=== PATIENT | female | born 1980 | race Caucasian/White ===

== ENCOUNTER 2016-08-08 19:22 | Emergency (ER) | payer OTHER ==
[~2016-08-08] VITALS: Ht 162.6 cm; Wt 54.4 kg
[2016-08-08 19:27] VITALS: BP 121/68
== END 2016-08-09 01:14 | disposition left against medical advice (07) ==
LOC: ER 19:31
DX: S61.012A Laceration without foreign body of left thumb without damage to nail, initial encounter (principal); Z53.21 Procedure and treatment not carried out due to patient leaving prior to being seen by health care provider; W26.9XXA Contact with unspecified sharp object(s), initial encounter; Y93.89 Activity, other specified; Y99.8 Other external cause status; Y92.89 Other specified places as the place of occurrence of the external cause

== ENCOUNTER 2024-05-04 21:39 | Inpatient (IN) | payer MEDICAID, OTHER ==
[~2024-05-04] VITALS: Ht 162.6 cm; Wt 56.7 kg
--- NOTE | 2024-05-04 21:47 | ED.PDOC ---
History of Present Illness HPI Comments 44 year old female brought in by EMS presents to the ED with a chief complaint of generalized weakness onset 3 weeks. Patient states she has been experiencing generalized weakness for the past 3 weeks, noticed it worsen today, was also experiencing shortness of breath. Per EMS, patient has a PMHx of anemia, is currently taking iron supplements, looks pale. EMS tried to obtain blood glucose, were unable to due to blood being very "watery." Patient denies any chest pain, headache, nausea, vomiting, diarrhea. No other symptoms or modifying factors present at this time. Time Seen by MD: 21:39 Reviewed Notes: Medications, Allergies Allergies: Coded Allergies: NO KNOWN ALLERGIES (Unverified , 05/04/24) Information Source: Patient, Emergency Med Personnel Severity: Moderate Timing: Weeks Duration: Since onset Prehospital treatment: None Past Medical History PAST MEDICAL HISTORY: Anemia Surgical History: Denies all surgeries WAITSTAFF History: No Pertinent WAITSTAFF History Family History Family History: Reviewed,noncontributory to illness, No family hx of Cancer, No family hx of DM, No family hx of Heart marli, No family hx of HTN, No family hx ofKidney marli, No family hx of Liver marli, No family hx of Lung marli, No family hx of Stroke Social History Smoker: Non-Smoker Alcohol: Denies ETOH Use Drugs: Denies Drug Use Lives In: Home Constitutional: reports: weakness; denies: chills, diaphoresis, fatigue, fever, malaise, sweats, others EENTM: denies: blurred vision, double vision, ear bleeding, ear discharge, ear drainage, ear pain, ear ringing, eye pain, eye redness, hearing loss, mouth pain, mouth swelling, nasal discharge, nose bleeding, nose congestion, nose pain, photophobia, tearing, throat pain, throat swelling, voice changes, others Respiratory: denies: cough, hemoptysis, orthopnea, SOB at rest, shortness of breath, SOB with excertion, stridor, wheezing, others Cardiovascular: denies: chest pain, dizzy spells, diaphoresis, Dyspnea on exertion, edema, irregular heart beat, left arm pain, lightheadedness, palpitations, PND, syncope, others Gastrointestinal: denies: abdomen distended, abdominal pain, blood streaked bowels, constipated, diarrhea, dysphagia, difficulty swallowing, hematemesis, melena, nausea, poor appetite, poor fluid intake, rectal bleeding, rectal pain, vomiting, others Genitourinary: denies: abnormal vagina bleeding, burning, dyspareunia, dysuria, flank pain, frequency, hematuria, incontinence, pain, , vagina discharge, urgency, others Neurological: reports: weakness; denies: dizziness, fainting, headache, left sided numbness, left sided weakness, numbness, paresthesia, pre-existing deficit, right sided numbness, right sided weakness, seizure, speech problems, tingling, tremors, others Musculoskeletal: denies: back pain, gout, joint pain, joint swelling, muscle pain, muscle stiffness, neck pain, others Integumetry: reports: change in color (pale); denies: bruises, change in hair/nails, dryness, laceration, lesions, lumps, rash, wounds, others Allergic/Immunocompromised: denies: Difficulty Healing, Frequent Infections, Hives, Itching, others Hematologic/Lymphatic: denies: anemia, blood clots, easy bleeding, easy bruising, swollen glands, others Endocrine: denies: excessive hunger, excessive sweating, excessive thirst, excessive urination, flushing, intolerance to cold, intolerance to heat, unexplained weight gain, unexplained weight loss, others Psychiatric: denies: anxiety, bipolar disorder, depression, hopeless, panic disorder, schizophrenia, sleepless, suicidal, others All Other Systems: Reviewed and Negative Physical Exam General Appearance: No Apparent Distress, Normal HEENT: Normal ENT Inspection, Pharynx Normal, TMs Normal Neck: Full Range of Motion, Non-Tender, Normal, Normal Inspection Respiratory: Chest Non-Tender, Lungs Clear, No Accessory Muscle Use, No Respiratory Distress, Normal Breath Sounds Cardiovascular: No Edema, No JVD, No Murmur, No Gallop, Normal Peripheral Pulses, Regular Rate/Rhythm Breast Exam: Deferred Gastrointestinal: No Organomegaly, Non Tender, No Pulsatile Mass, Normal Bowel Sounds, Soft Genitalia: Deferred Pelvic: Deferred Rectal: Deferred Extremities: No calf tenderness, Normal capillary refill, Normal inspection, Normal range of motion, Non-tender, No pedal edema Musculoskeletal : Apperance: Normal Neurologic: Alert, hydroelectric machinery mechanic II-XII nml as Tested, No Motor Deficits, Normal Affect, Normal Mood, No Sensory Deficits Cerebellar Function: Normal Reflexes: Normal Skin: Dry, Normal Color, Warm Lymphatic: No Adenopathy Was a procedure done? Was a procedure done?: No Differential Dx Considerations may include: Differential diagnosis includes but is not limited to: miscarriage, dysfunctional uterine bleeding, uterine fibroids, coagulopathy, symptomatic anemia, hypovolemia and others X-Ray, Labs, Meds, VS Vital Signs Date Time Temp Pulse Resp B/P (MAP) Pulse Ox O2 Delivery O2 Flow Rate FiO2 05/04/24 23:40 99.1 109 17 98/51 99.1 05/04/24 21:45 98.8 107 16 111/57 (75) 100 Lab Test 05/04/24 21:57 Range/Units White Blood Count 7.3 4.4-10.8 10^3/uL Red Blood Count 0.98 L 4.0-5.20 10^6/uL Hemoglobin 1.8 *L 12.2-16.2 g/dL Hematocrit 6.4 L 36.0-46.0 % Mean Corpuscular Volume 65.3 L 80.0-100.0 fL Mean Corpuscular Hemoglobin 18.8 L 28.0-32.0 pg Mean Corpuscular Hemoglobin Concent 28.8 L 32.0-36.0 g/dL Red Cell Distribution Width 34.5 H 11.8-14.3 % Platelet Count 32 L 140-450 10^3/uL Mean Platelet Volume 8.1 6.9-10.8 fL Neutrophils (%) (Auto) 74.4 37.0-80.0 % Lymphocytes (%) (Auto) 18.1 10.0-50.0 % Monocytes (%) (Auto) 4.9 0.0-12.0 % Eosinophils (%) (Auto) 0.7 0.0-7.0 % Basophils (%) (Auto) 1.9 0.0-2.0 % Neutrophils # (Auto) 5.4 1.6-8.6 10 ^3/uL Lymphocytes # (Auto) 1.3 0.4-5.4 10 ^3/uL Monocytes # (Auto) 0.4 0-1.3 10 ^3/uL Eosinophils # (Auto) 0.1 0-0.8 10 ^3/uL Basophils # (Auto) 0.1 0-0.2 10 ^3/uL Nucleated Red Blood Cells 0.1 % Platelet Estimate Decreased Hypochromasia (manual) Marked Poikilocytosis (manual) Slight Anisocytosis (manual) Marked Microcytosis Marked Tear Drop Cells Few Schistocytes Few Reticulocyte Count (auto) 0.99 0.5-1.5 % Prothrombin Time 11.2 9.3-11.8 sec Prothrombin Time INR 1.06 0.9-1.15 Activated Partial Thromboplast Time 20.7 L 24.5-34.5 SEC Sodium Level 137 136-145 mmol/L Potassium Level 4.2 3.5-5.1 mmol/L Chloride Level 106 98-107 mmol/L Carbon Dioxide Level 20 20-31 mmol/L Anion Gap 11 5-15 Blood Urea Nitrogen 8 L 9-23 mg/dL Creatinine 0.62 0.550-1.02 mg/dL Glomerular Filtration Rate Calc 113 >90 mL/min BUN/Creatinine Ratio 12.9 10.0-20.0 Serum Glucose 109 H 74-106 mg/dL Calcium Level 8.4 L 8.7-10.4 mg/dL Iron Level 128 50-170 ug/dL Total Iron Binding Capacity 416 250-425 ug/dL Percent Iron Saturation 30.8 15-50 % Total Bilirubin 0.6 0.2-1.0 mg/dL Aspartate Amino Transferase (AST) 34 13-40 U/L Alanine Aminotransferase (ALT) 33 7-40 U/L Alkaline Phosphatase 111 46-116 U/L Total Protein 5.7 5.7-8.2 g/dL Albumin 3.6 3.2-4.8 g/dL Current Medications Medications (Trade) Dose Ordered Sig/Donavon Route Start Time Stop Time Status Last Admin Sodium Chloride 500 ml @ 500 mls/hr Q1H ONCE IV 05/04/24 22:30 05/04/24 23:29 DC 05/04/24 23:[address] [address] Ph: [phone] DIAGNOSTIC IMAGING Diagnostic Imaging Report : [id number] Signed PATIENT: NENA KAY ACCT: [id number] UNIT: [id number] : 1980 LOC: ER ROOM / BED: / AGE / SEX: 44 / F ADM STATUS: REG ER SERVICE 44 ORDERING PHYSICIAN: GABRIELA HERRERA MD PROCEDURE(s): CXRP - CHEST PORTABLE REASON: SOB ORDER NUMBER(s): [id number], ACCESSION NUMBER(s): [id number] CHEST RADIOGRAPH Indication: SOB Technique: Single frontal view of the chest was obtained COMPARISON: None FINDINGS: Lines and Tubes: None Lungs: Clear Pleura: No effusion. No pneumothorax. Cardiomediastinal contours: Unremarkable Bones: Unremarkable IMPRESSION: 1. No acute disease. ATED BY: HARMONY VILLALTA MD DICTATED DATE/TIME: 05/04/242223 SIGNED BY: HARMONY VILLALTA MD SIGNED DATE/TIME: 05/04/242223 CC: Time of 1ST Reevaluation: 22:09 Reevaluation 1ST: Unchanged Time of 2ND Reevaluation: 00:13 Reevaluation 2ND: Unchanged Patient Education/Counseling: Diagnosis, Treatment, Prognosis Family Education/Counseling: No Family Present Additional Information The following tests were ordered, and results were reviewed by me: CBC, CMP, UA, PTPTT, TYPE AND SCREEN, XY CHEST, EKG Additional Information was gathered from interviewing the following independent historians: EMS I reviewed and agreed with the following test results read by other providers: XY CHEST I discussed treatment and results with medical personnel and: patient Departure 1 Departure Time of Disposition: 00:13 Impression: Primary Impression: Microcytic anemia Additional Impressions: Symptomatic anemia Thrombocytopenia Disposition: ADMITTED INPATIENT Admit to: Med Surg Condition: Guarded Discharged With: Self Comments Severe Anemia with Menorrhagia Chief Complaint: Severe weakness and heavy menstrual periods History of Present Illness: 44-year-old female presents to the ED with complaints of severe generalized weakness for the past two days. Patient reports a history of heavy menstrual periods. She appears notably pale on examination. Laboratory studies reveal severe microcytic anemia with critically low hemoglobin and platelet counts, requiring urgent intervention. Review of Systems: Constitutional: Positive for generalized weakness Hematologic: Heavy menstrual bleeding All other systems reviewed and negative Physical Exam: General: Patient appears pale Lab Results: CBC: - Hemoglobin: 1.8 g/dL (Critical) - Hematocrit: 6.4% (Critical) - MCV: 65.3 fL (Low) - WBC: 7.0 K/uL (Normal) - Platelets: 32 K/uL (Critical) Chemistry Panel: Within normal limits Imaging and Other Relevant Results: Chest X-ray: No acute pathology Medical Decision Making: Summary Statement: 44-year-old female presenting with severe symptomatic anemia (Hgb 1.8) and thrombocytopenia in the setting of menorrhagia, requiring urgent blood transfusion and admission. Problem List: 1. Severe microcytic anemia 2. Thrombocytopenia 3. Menorrhagia Differential Diagnosis: 1. Iron deficiency anemia due to chronic blood loss 2. Combined nutritional deficiency 3. Possible underlying hematologic disorder 4. Potential gynecologic pathology ED Course: Patient evaluated and found to have critical anemia. Two units of packed red blood cells ordered for immediate transfusion. Shared decision-making discussion held with patient who agrees with treatment plan and admission. Assessment and Plan: 1. Severe Microcytic Anemia (Hgb 1.8, Hct 6.4) - Initiate immediate blood transfusion with 2 units PRBCs - Additional units likely needed - Admit to hospital for continued transfusion and further workup 2. Thrombocytopenia (Plt 32) - Monitor closely - Further evaluation during admission 3. Menorrhagia - Gynecology consultation during admission - Evaluate for underlying cause of heavy menstrual bleeding Billing Information: ICD-10: D50.0 - Iron deficiency anemia secondary to blood loss (chronic) ICD-10: D69.6 - Thrombocytopenia, unspecified ICD-10: N92.0 - Excessive and frequent menstruation with regular cycle Critical Care Note Critical Care Time?: Yes (35 min-critical care time only) Critical care comment: Total critical care time: Approximately 36 minutes Due to a high probability of clinically significant, life threatening deterioration, the patient required my highest level of preparedness to intervene emergently and I personally spent this critical care time directly and personally managing the patient. This critical care time included obtaining a history; examining the patient; pulse oximetry; ordering and review of studies; arranging urgent treatment with development of a management plan; evaluation of patient's response to treatment; frequent reassessment; and, discussions with other providers. This critical care time was performed to assess and manage the high probability of imminent, life-threatening deterioration that could result in multi-organ failure. It was exclusive of separately billable procedures and treating other patients. Stability Stability form required: No Heart Score Heart Score: Heart Score Response (Comments) Value History N/A 0 EKG N/A 0 Age N/A 0 Risk Factors N/A 0 Troponin N/A 0 Total 0 I personally scribed for GABRIELA HERRERA MD ([email or web address]) on 05/04/24 at 21:47. Electronically submitted by Samra Corey ([email or web address]). I personally scribed for GABRIELA HERRERA MD ([email or web address]) on 05/04/24 at 21:48. Electronically submitted by Samra Corey ([email or web address]). I personally scribed for GABRIELA HERRERA MD ([email or web address]) on 05/04/24 at 22:23. Electronically submitted by Samra Corey ([email or web address]). I personally scribed for GABRIELA HERRERA MD ([email or web address]) on 05/04/24 at 23:02. Electronically submitted by Samra Corey ([email or web address]). GABRIELA HERRERA MD May 04, 2024 21:47
[2024-05-04 22:19] LABS: Basophils # (auto) 0.1 10 ^3/uL (0-0.2); Eosinophils # (auto) 0.1 10 ^3/uL (0-0.8); Hematocrit 6.4 % (36.0-46.0); Mean Corpuscular Hgb Conc. 28.8 g/dL (32.0-36.0); Neutrophils # (auto) 5.4 10 ^3/uL (1.6-8.6); Nucleated Red Blood Cells % 0.1 %
[2024-05-04 22:22] LABS: Basophils % (auto) 1.9 % (0.0-2.0); Eosinophils % (auto) 0.7 % (0.0-7.0); Lymphocytes # (auto) 1.3 10 ^3/uL (0.4-5.4); Lymphocytes % (auto) 18.1 % (10.0-50.0); Mean Corpuscular Hemoglobin 18.8 pg (28.0-32.0); Mean Corpuscular Volume 65.3 fL (80.0-100.0); Monocytes # (auto) 0.4 10 ^3/uL (0-1.3); Monocytes % (auto) 4.9 % (0.0-12.0); Neutrophils % (auto) 74.4 % (37.0-80.0); Platelet Count (auto) 32 10^3/uL (140-450); Red Blood Cells 0.98 10^6/uL (4.0-5.20); Red Cell Distribution Width 34.5 % (11.8-14.3); White Blood Cell 7.3 10^3/uL (4.4-10.8)
[2024-05-04 22:25] LABS: Hemoglobin 1.8 g/dL (12.2-16.2)
--- NOTE | 2024-05-04 22:27 | DVH ---
CHEST RADIOGRAPH Indication: SOB Technique: Single frontal view of the chest was obtained COMPARISON: None FINDINGS: Lines and Tubes: None Lungs: Clear Pleura: No effusion. No pneumothorax. Cardiomediastinal contours: Unremarkable Bones: Unremarkable IMPRESSION: 1. No acute disease.
[2024-05-04 22:34] LABS: INR 1.06 (0.9-1.15); Partial Thromboplastin Time 20.7 SEC (24.5-34.5); Prothrombin Time 11.2 sec (9.3-11.8)
[2024-05-04 22:44] LABS: Alanine Aminotransferase 33 U/L (7-40); Albumin 3.6 g/dL (3.2-4.8); Alkaline Phosphatase 111 U/L (46-116); Anion Gap 11 (5-15); Aspartate Aminotransferase 34 U/L (13-40); BUN/Creatinine Ratio 12.9 (10.0-20.0); Bilirubin, Total 0.6 mg/dL (0.2-1.0); Carbon Dioxide 20 mmol/L (20-31); Chloride 106 mmol/L (98-107); Potassium 4.2 mmol/L (3.5-5.1); Sodium 137 mmol/L (136-145); Total Protein 5.7 g/dL (5.7-8.2)
[2024-05-04 22:45] VITALS: PULSE 106; RESP 20; O2SAT 96
[2024-05-04 22:48] LABS: Blood Urea Nitrogen 8 mg/dL (9-23); Calcium 8.4 mg/dL (8.7-10.4); Glucose 109 mg/dL (74-106)
[2024-05-04 22:53] LABS: % Iron Saturation 30.8 % (15-50)
[2024-05-04] MEDS: SODIUM CHLORIDE 0.9% 500 ML IV ONE (23:00)
[2024-05-04 23:40] VITALS: BP 98/51; PULSE 109; RESP 17; TEMP 99.1
[2024-05-05] VITALS (26 sets, daily range): BP systolic 93–126; BP diastolic 44–71; PULSE 62–107; RESP 12–22; TEMP 98–99.2; O2SAT 97–100
[2024-05-05] LABS: Anisocytosis Marked; Hypochromia Marked; Platelet Estimate Decreased; Tear Drop Cells FEW
[2024-05-05] MEDS ORDERED: MORPHINE SULFATE INJ 2 MG/ml SYRG IV PRN (00:45)
[2024-05-05] MEDS ORDERED: NITROGLYCERIN 0.4 MG SL TAB SL PRN (00:45)
[2024-05-05] MEDS: SODIUM CHLORIDE 0.9% 1,000 ML IV SCH (00:58)
--- NOTE | 2024-05-05 01:43 | DVHHPRES ---
History of Present Illness Resident Creating Document: LUCA RODRIGUEZ RESIDENT History of Present Illness NENA KAY is a 44-year-old female with a PMH of fibromyalgia, bulging disc, basal cell carcinoma shoulders presented to the ED with a worsening of weakness. Patient reported for past 3 weeks she has been having severe vaginal bleeding, sometimes required 3 pads in 30 minutes, clots associated with severe fatty, difficulty walking, shortness of breath, syncopal for 3 times, lightheadedness, palpitations, leg swelling which prompted her to visit ED. on my assessment patient denies chest pain, nausea, vomiting, diarrhea, abdominal pain and other acute associated symptoms. PMH: Fibromyalgia, bulge disc, basal cell carcinoma PSH: Tubal ligation, GI bypass, breast implant Family history: Skin cancer in family Social history: Lives with a boyfriend. Denies smoking, alcohol and other drug abuse Allergies: No known allergies Review of Systems Constitutional: Yes: Chills Eyes: No: Pain, Vision change, Conjunctivae inflammation, Eyelid inflammation, Other, Redness ENT: No: Ear pain, Ear discharge, Nose pain, Nose discharge, Nose congestion, Mouth pain, Mouth swelling, Throat pain, Throat swelling, Other Respiratory: Shortness of breath Cardiovascular: Palpitations, Edema, Lt Headedness Gastrointestinal: No: Nausea, Vomiting, Abdominal Pain, Diarrhea, Constipation, Melena, Hematochezia, Other Genitourinary: No Dysuria, No Frequency, No Incontinence, No Hematuria, No Retention, No Other Musculoskeletal: neck pain, back pain Skin: Lesions (Shoulder), Other Neurological: No: Weakness, Numbness, Incoordination, Change in speech, Confusion, Seizures, Other Allergies: Coded Allergies: NO KNOWN ALLERGIES (Unverified , 05/04/24) Medications Current Medications Medications Dose Ordered Sig/Donavon Route Start Time Stop Time Status Last Admin Dose Admin Sodium Chloride 10 ml Q8HR IV 05/05/24 06:00 Sodium Chloride 1,000 ml @ 120 mls/hr Q8H20M IV 05/05/24 00:45 05/05/24 00:58 120 MLS/HR Acetaminophen 650 mg Q6HP PRN PO 05/05/24 00:45 Nitroglycerin 0.4 mg Q5MINP PRN SL 05/05/24 00:45 Morphine Sulfate 2 mg Q30M PRN IV 05/05/24 00:45 Exam Vital Signs Vital Signs Date Time Temp Pulse Resp B/P (MAP) Pulse Ox O2 Delivery O2 Flow Rate FiO2 05/05/24 01:37 98.6 97 17 112/62 98.6 05/04/24 21:45 100 Exam Pt is lying on bed General Appearance: Alert, Oriented X3, Cooperative, moderate distress HEENT: Atraumatic, Mucous membranes dry, palor Respiratory: Clear to auscultation, Normal air movement Cardiovascular: Regular rate, Normal S1, Normal S2 Abdominal: Active bowel sounds, Soft, no distention, no tenderness Extremities: 2+ edema in BLE, Normal pulses, Skin: Pallor, skin lesions on right shoulder Neuro: Normal speech, sensorimotor deficits none Psych/Mental Status: Mental status NL, Mood NL Nurse Mara was there as sharperone during examination Labs/Xrays Labs Test 05/04/24 22:00 05/04/24 21:57 Range/Units White Blood Count 7.3 4.4-10.8 10^3/uL Red Blood Count 0.98 L 4.0-5.20 10^6/uL Hemoglobin 1.8 *L 12.2-16.2 g/dL Hematocrit 6.4 L 36.0-46.0 % Mean Corpuscular Volume 65.3 L 80.0-100.0 fL Mean Corpuscular Hemoglobin 18.8 L 28.0-32.0 pg Mean Corpuscular Hemoglobin Concent 28.8 L 32.0-36.0 g/dL Red Cell Distribution Width 34.5 H 11.8-14.3 % Platelet Count 32 L 140-450 10^3/uL Mean Platelet Volume 8.1 6.9-10.8 fL Neutrophils (%) (Auto) 74.4 37.0-80.0 % Lymphocytes (%) (Auto) 18.1 10.0-50.0 % Monocytes (%) (Auto) 4.9 0.0-12.0 % Eosinophils (%) (Auto) 0.7 0.0-7.0 % Basophils (%) (Auto) 1.9 0.0-2.0 % Neutrophils # (Auto) 5.4 1.6-8.6 10 ^3/uL Lymphocytes # (Auto) 1.3 0.4-5.4 10 ^3/uL Monocytes # (Auto) 0.4 0-1.3 10 ^3/uL Eosinophils # (Auto) 0.1 0-0.8 10 ^3/uL Basophils # (Auto) 0.1 0-0.2 10 ^3/uL Nucleated Red Blood Cells 0.1 % Platelet Estimate Decreased Hypochromasia (manual) Marked Poikilocytosis (manual) Slight Anisocytosis (manual) Marked Microcytosis Marked Tear Drop Cells Few Schistocytes Few Reticulocyte Count (auto) 0.99 0.5-1.5 % Prothrombin Time 11.2 9.3-11.8 sec Prothrombin Time INR 1.06 0.9-1.15 Activated Partial Thromboplast Time 20.7 L 24.5-34.5 SEC Sodium Level 137 136-145 mmol/L Potassium Level 4.2 3.5-5.1 mmol/L Chloride Level 106 98-107 mmol/L Carbon Dioxide Level 20 20-31 mmol/L Anion Gap 11 5-15 Blood Urea Nitrogen 8 L 9-23 mg/dL Creatinine 0.62 0.550-1.02 mg/dL Glomerular Filtration Rate Calc 113 >90 mL/min BUN/Creatinine Ratio 12.9 10.0-20.0 Serum Glucose 109 H 74-106 mg/dL Calcium Level 8.4 L 8.7-10.4 mg/dL Iron Level 128 50-170 ug/dL Total Iron Binding Capacity 416 250-425 ug/dL Percent Iron Saturation 30.8 15-50 % Total Bilirubin 0.6 0.2-1.0 mg/dL Aspartate Amino Transferase (AST) 34 13-40 U/L Alanine Aminotransferase (ALT) 33 7-40 U/L Alkaline Phosphatase 111 46-116 U/L Total Protein 5.7 5.7-8.2 g/dL Albumin 3.6 3.2-4.8 g/dL Assessment/Plan Assessment/Plan # severe/acute vs chronic blood loss anemia # microcytic, hypochromic anemia # Severe menorrhagia # thrombocytopenia -initiated immediate transfusion with 2 PRBC -ordered iron panel -ordered ultrasound -consulted OBGYN -closely monitor labs Protonix No Lovenox since patient is bleeding Regular diet Goals of care discussed with the patient for more than 29 minutes: Full code status Case discussed with Dr. Craig, patient and nurse Plan discussed with: Patient My Orders Orders - LUCA RODRIGUEZ RESIDENT Procedure Category Date Status Time Admit ADMIT 05/05/24 Transmitted 00:43 Allergies JASON 05/05/24 In Process 00:43 Code Status CODE 05/05/24 Transmitted 00:43 Sodium Chloride Lock PHA 05/05/24 In Process (Saline Lock Ns) 06:00 Sodium Chloride 0.9% PHA 05/05/24 In Process 00:45 Complete Blood Count LAB 05/05/24 Logged 04:00 Comprehensive LAB 05/05/24 Logged Metabolic Panel 04:00 Cardiac DIET 05/05/24 Transmitted Diet-2gna,Lofat,Lochol Breakfast Condition: Fair JASON 05/05/24 In Process 00:43 Acetaminophen Tablet PHA 05/05/24 In Process (Tylenol Tablet) 00:45 Nitroglycerin PHA 05/05/24 In Process Sublingual (Ntrostat 00:45 Morphine Sulfate PHA 05/05/24 In Process Injection 00:45 Oxygen By Nasal RT 05/05/24 Transmitted Cannula 00:43 Stat Ekg For Chest JASON 05/05/24 In Process Pain 00:43 Notify Of Changes JASON 05/05/24 In Process From Base 00:43 * Drying Tunnel Operator Consultation CONS 05/05/24 Transmitted 01:14 Pelvic US 05/05/24 Logged 01:14 Iron Panel LAB 05/05/24 Logged 01:14 Ferritin LAB 05/05/24 In Process 01:14 B-Type Natriuretic LAB 05/05/24 In Process Peptide 01:14 Drug Screen LAB 05/05/24 Logged 01:14 Magnesium LAB 05/05/24 In Process 01:14 PTPTT LAB 05/05/24 Logged 01:14 Thyroid Stimulating LAB 05/05/24 In Process Hormone 01:14 Urinalysis LAB 05/05/24 Logged 01:14 Echo 2d Mode Cardiac US 05/05/24 Transmitted DOP 01:40 Date of Service: May 05, 2024 Billing Provider: ANGEL CRAIG MD Common Visit Codes: [id number] INP/OBS CARE (HIGH) LUCA RODRIGUEZ RESIDENT May 05, 2024 01:43 ANGEL CRAIG MD May 06, 2024 08:44
--- NOTE | 2024-05-05 02:52 | DVH ---
Examination: PELUS CLINICAL INDICATION: Uterine mass. COMPARISON: None. TECHNIQUE: Transabdominal and transvaginal ultrasound was performed. FINDINGS: Uterus: The uterus measures 7.6 cm (length) 6.4 cm (AP) 5.4 cm (transverse). The uterus appe ars retroverted and heterogeneous. Endometrial thickness: 6.4 mm. Cervix: No significant abnormality noted. Ovaries: Right Ovary: Measures 4.5 1.6 1.2 cm. Contains a 2.9 0.6 0.9 cm anechoic, cyst. Left Ovary: Measures 4.3 1.0 2.1 cm. Contains a 0.4 0.4 0.6 cm anechoic, follicle. Adnexa: Bilateral adnexa appear within normal limits. Other Findings: No free fluid in the cul-de-sac. IMPRESSION: 1. Retroverted and retroflexed uterus. 2. No uterine mass is detected 3. Simple right ovarian cyst. Suggest follow-up ultrasound after 6 weeks. 4. No free fluid in the pelvis. Electronically Signed 05/05/2024 02:50 Jered Barcenas
[2024-05-05] MEDS: guaiFENesin-DM 100/10mg/5ml SYR PO ONE (03:27)
[2024-05-05] MEDS: SODIUM CHLOR 0.9% PF (SALINE LOCK) 10ML VIAL/SYR IV SCH (06:05)
[2024-05-05 06:16] LABS: Basophils # (auto) 0.1 10 ^3/uL (0-0.2); Eosinophils # (auto) 0 10 ^3/uL (0-0.8); Monocytes # (auto) 0.3 10 ^3/uL (0-1.3); Red Blood Cells 1.84 10^6/uL (4.0-5.20); White Blood Cell 5.4 10^3/uL (4.4-10.8)
[2024-05-05 06:20] LABS: Basophils % (auto) 1.4 % (0.0-2.0); Eosinophils % (auto) 0.6 % (0.0-7.0); Hematocrit 13.8 % (36.0-46.0); Lymphocytes # (auto) 1.9 10 ^3/uL (0.4-5.4); Lymphocytes % (auto) 35.3 % (10.0-50.0); Mean Corpuscular Hgb Conc. 31.9 g/dL (32.0-36.0); Mean Corpuscular Volume 75.1 fL (80.0-100.0); Neutrophils # (auto) 3.1 10 ^3/uL (1.6-8.6); Neutrophils % (auto) 57.7 % (37.0-80.0); Nucleated Red Blood Cells % 0.2 %
[2024-05-05 06:27] LABS: Albumin 3.3 g/dL (3.2-4.8); Alkaline Phosphatase 115 U/L (46-116); Anion Gap 7 (5-15); BUN/Creatinine Ratio 13.6 (10.0-20.0); Bilirubin, Total 1.1 mg/dL (0.2-1.0); Carbon Dioxide 23 mmol/L (20-31); Glucose 97 mg/dL (74-106); Potassium 3.7 mmol/L (3.5-5.1); Sodium 138 mmol/L (136-145)
[2024-05-05 06:30] LABS: Hemoglobin 4.4 g/dL (12.2-16.2); Platelet Count (auto) 19 10^3/uL (140-450)
[2024-05-05 06:35] LABS: Alanine Aminotransferase 45 U/L (7-40); Aspartate Aminotransferase 68 U/L (13-40); Blood Urea Nitrogen 6 mg/dL (9-23); Calcium 8.3 mg/dL (8.7-10.4); Chloride 108 mmol/L (98-107); Total Protein 5.2 g/dL (5.7-8.2)
[2024-05-05 07:47] LABS: Folate (Folic Acid) 16.57 ng/mL (>5.38)
--- NOTE | 2024-05-05 07:58 | DVH ---
INDICATION: transamnitis TECHNIQUE: Multiple real-time sonographic images were obtained of the right upper quadrant. COMPARISON: None FINDINGS: The liver demonstrates heterogenous echotexture without focal mass lesions. The liver measu res 18cm. There is no intrahepatic or extrahepatic ductal dilatation. The common duct measures 0. 6 mm. Gallbladder surgically absent. The right kidney measures 11 cm. The right kidney is normal in contour, size, and shape. The echog enicity is normal. There is no hydronephrosis. The pancreas is not well visualized due to overlying bowel gas. IMPRESSION: No sonographic evidence of gallstones or acute cholecystitis. Fatty liver.
[2024-05-05 08:17] LABS: INR 1.02 (0.9-1.15); Partial Thromboplastin Time 23.6 SEC (24.5-34.5); Prothrombin Time 10.8 sec (9.3-11.8)
--- NOTE | 2024-05-05 08:38 | ECG ---
[facility] Test Date: 2024-05-04 Test Time: 21:42:23 Pat Name: NENA KAY Department: ER Room: 0214T Gender: F Education Assistant: REGINO : 1980 Requested By: GABRIELA HERRERA Order Number: [id number] Reading MD: Calin Elam Measurements Intervals Laura Rate: 107 P: 66 NH: 117 QRS: -6 QRSD: 101 T: 62 QT: 340 QTc: 454 Interpretive Statements Sinus tachycardia Probable left atrial enlargement Electronically Signed On 05-07-2024 17:43:33 PST by Calin Elam Please click the below link to view image of tracing.
[2024-05-05 09:07] LABS: Nucleated Red Blood Cells % 0.2 %
[2024-05-05 09:08] LABS: Anisocytosis Slight; Platelet Count (auto) 19 10^3/uL (140-450); Platelet Estimate Markedly Decreased
[2024-05-05 09:09] LABS: Hypochromia Slight; Ovalocytes FEW; Stomatocytes Few; Tear Drop Cells FEW
[2024-05-05 09:11] LABS: Wright Stain Ready for Review
--- NOTE | 2024-05-05 09:24 | DVHINCON2 ---
Date of service: May 05, [address] Roderick Gamez Reason for Consultation Allen cytopenia with heavy menstrual bleeding History of Present Illness 59 years old female who gives a history of gastric bypass surgery in 2010. Does not remember having any blood test done for a number of years. There is no other medical history. She has had breast implants. Now she is admitted with heavy menstrual bleeding and fatigue and tiredness and tendency to pass out. She is found to be severely pancytopenic CBC on admission on 05/04/2024 showed a white count of 7.3 hemoglobin 1.8 MCV 65.3 platelets 32,000 confirmed on the blood smear with microcytosis hypochromasia. Reticulocyte count 0.9. Haptoglobin is pending. She has been given 2 units of packed red cells and the hemoglobin came up to 4.4 with platelets of 19,000 and white count 5.4 Normal renal functions. AST 68 ALT 45 LDH 213 total protein 5.2 albumin 3.3 B12 539 folate 16.5 TSH 2.45 serum ferritin 6.3 serum iron 128 saturation 30 Liver ultrasound showed fatty liver Pelvic ultrasound was unremarkable Chest x-ray was unremarkable No complaints of any joint pains headaches nausea vomiting. No fevers night sweats no bruising. No bleeding anywhere else. Weight has been stable. Past Medical History Gastric bypass surgery in 2010 Family History No family history of malignancies. Mother and grandmother had easy bruising Social History No smoking drinking or drugs. Patient takes multivitamins and iron pills Allergies: Coded Allergies: NO KNOWN ALLERGIES (Unverified , 05/04/24) Current Medications Current Medications Medications (Trade) Dose Ordered Sig/Donavon Route PRN Reason Start Time Stop Time Status Last Admin Sodium Chloride (Saline Lock Ns) 10 ml Q8HR IV 05/05/24 06:00 05/05/24 06:05 Sodium Chloride 1,000 ml @ 120 mls/hr Q8H20M IV 05/05/24 00:45 05/05/24 00:58 Acetaminophen (Tylenol Tablet) 650 mg Q6HP PRN PO PAIN SCALE 1-3 OR TEMP>100.4 05/05/24 00:45 Nitroglycerin (Ntrostat Sublingual) 0.4 mg Q5MINP PRN SL FOR CHEST PAIN 05/05/24 00:45 Morphine Sulfate 2 mg Q30M PRN IV FOR CHEST PAIN 05/05/24 00:45 Methylprednisolone Sodium Succinate (Solu Medrol) 80 mg Q8HR IV 05/05/24 14:00 UNV Vital Signs Vital Signs Date Time Temp Pulse Resp B/P (MAP) Pulse Ox O2 Delivery O2 Flow Rate FiO2 05/05/24 08:11 98.9 82 14 107/64 98.9 05/05/24 08:00 96 05/04/24 22:45 Room Air* 0 21 21 Physical Exam GENERAL: The patient is a moderately built and nourished ,in no distress, alert and oriented. HEAD AND NECK: Unremarkable. No neck nodes or masses. Conjunctivae: Unremarkable for any mucosal hemorrhage or inflammation. Thyroid is nonpalpable. Throat is unremarkable. SPINE: No deformities or tenderness. CHEST: Chest wall, no tenderness. LUNGS: Clear. CARDIOVASCULAR: Regular sinus rhythm. No murmurs or gallops. ABDOMEN: No organomegaly, tenderness or ascites. Bowel sounds present. EXTREMITIES: No clubbing, edema or cyanosis. Peripheral pulses palpable. No calf tenderness. LYMPHATICS: No significant lymphadenopathy. NEUROLOGIC: No focal neurological deficits. SKIN: Unremarkable for any petechiae, purpura, or ecchymosis. Psych: No abnormalities Available data reviewed Labs/Diagnostic Data Labs Test 05/05/24 07:10 05/05/24 05:23 05/04/24 22:00 05/04/24 21:57 Range/Units Vitamin B12 Level 539 211-911 pg/mL Folic Acid 16.57 >5.38 ng/mL White Blood Count 5.4 # 4.4-10.8 10^3/uL Red Blood Count 1.84 L 4.0-5.20 10^6/uL Hemoglobin 4.4 #*L 12.2-16.2 g/dL Hematocrit 13.8 #L 36.0-46.0 % Mean Corpuscular Volume 75.1 #L 80.0-100.0 fL Mean Corpuscular Hemoglobin 24.0 L 28.0-32.0 pg Mean Corpuscular Hemoglobin Concent 31.9 L 32.0-36.0 g/dL Red Cell Distribution Width 29.0 H 11.8-14.3 % Platelet Count 19 *L 140-450 10^3/uL Mean Platelet Volume 8.1 6.9-10.8 fL Neutrophils (%) (Auto) 57.7 37.0-80.0 % Lymphocytes (%) (Auto) 35.3 10.0-50.0 % Monocytes (%) (Auto) 5.0 0.0-12.0 % Eosinophils (%) (Auto) 0.6 0.0-7.0 % Basophils (%) (Auto) 1.4 0.0-2.0 % Neutrophils # (Auto) 3.1 1.6-8.6 10 ^3/uL Lymphocytes # (Auto) 1.9 0.4-5.4 10 ^3/uL Monocytes # (Auto) 0.3 0-1.3 10 ^3/uL Eosinophils # (Auto) 0 0-0.8 10 ^3/uL Basophils # (Auto) 0.1 0-0.2 10 ^3/uL Nucleated Red Blood Cells 0.2 % Platelet Estimate Markedly decreased Hypochromasia (manual) Slight Anisocytosis (manual) Slight Tear Drop Cells Few Ovalocytes Few Stomatocytes Few Reticulocyte Count (auto) 1.38 0.5-1.5 % Prothrombin Time 10.8 9.3-11.8 sec Prothrombin Time INR 1.02 0.9-1.15 Activated Partial Thromboplast Time 23.6 L 24.5-34.5 SEC Fibrinogen 266 177-375 mg/dL Sodium Level 138 136-145 mmol/L Potassium Level 3.7 3.5-5.1 mmol/L Chloride Level 108 H 98-107 mmol/L Carbon Dioxide Level 23 20-31 mmol/L Anion Gap 7 5-15 Blood Urea Nitrogen 6 L 9-23 mg/dL Creatinine 0.44 L 0.550-1.02 mg/dL Glomerular Filtration Rate Calc 122 >90 mL/min BUN/Creatinine Ratio 13.6 10.0-20.0 Serum Glucose 97 74-106 mg/dL Calcium Level 8.3 L 8.7-10.4 mg/dL Total Bilirubin 1.1 H 0.2-1.0 mg/dL Direct Bilirubin 0.5 H <0.3 mg/dL Aspartate Amino Transferase (AST) 68 H 13-40 U/L Alanine Aminotransferase (ALT) 45 H 7-40 U/L Alkaline Phosphatase 115 46-116 U/L Lactate Dehydrogenase 213 120-246 U/L Total Protein 5.2 L 5.7-8.2 g/dL Albumin 3.3 3.2-4.8 g/dL B-Type Natriuretic Peptide 203.59 0-100 pg/mL Poikilocytosis (manual) Slight Microcytosis Marked Schistocytes Few Magnesium Level 2.1 1.6-2.6 mg/dL Iron Level 128 50-170 ug/dL Total Iron Binding Capacity 416 250-425 ug/dL Percent Iron Saturation 30.8 15-50 % Ferritin 6.3 L 10-291 ng/mL Thyroid Stimulating Hormone (TSH) 2.45 0.55-4.78 uIU/mL Assessment 1. Microcytic hypochromic anemia with iron deficiency with heavy menstrual bleeding. Normal white count and low platelets. Abdominal ultrasound unremarkable pelvic ultrasound unremarkable. The patient has iron deficiency, may have ITP, may rule out bone marrow pathology 2. History of gastric bypass surgery in 2010 Plan/Recommendation She is getting packed red cell transfusion Will check WILLIAM, anti-CCP antibodies, Valeria direct, HIV, hepatitis panel Treat with Solu-Medrol 80 mg IV every 8 hours Plan discussed with: Patient MEHNAZ WOLFE MD May 05, 2024 09:24
--- NOTE | 2024-05-05 09:24 | DVHOP ---
DIctated in error, wrong patient. No procedure performed on this patient. DO SUSAN Martínez
--- NOTE | 2024-05-05 09:30 | DVHINCON2 ---
Date of service: May 05, 2024 Reason for Consultation Severe Symptomatic Anemia History of Present Illness HPI 44y TAB2 LMP 04/28/24. Admitted with symptomatic anemia, severe, hemoglobin 1.8 and platelets of 19,000 Patient has normal monthly menstrual cycles lasting 3-7 days, heavy with clots. Currently having acute uterine bleeding with large clots, no pelvic pain. Last PAP approx 5 yr ago at [facility], states it was "normal". Last mammogram: never Pelvic US does not show any uterine fibroids, polyps or other lesions noted. PMH: Fibromyalgia, degenerative disc disease, chronic opioid use disorder, basal cell carcinoma, restless leg syndrome PSH: Tubal ligation, Nakul en y gastric bypass 2010, breast implants (augmentation) Family history: Skin cancer in family Social history: Lives with a boyfriend. Former smoker (quit 2 yr ago), Denies current alcohol or drug abuse Allergies: No known allergies Review of Systems Constitutional: Malaise, Weakness, Weight loss Ears, Nose, & Throat: No symptom reported Eyes: No symptom reported Pulmonary/Respiratory: Dyspnea Cardiovascular: Palpitations, Lt Headedness Gastrointestinal: No symptom reported Genitourinary: No symptom reported Musculoskeletal: No symptom reported Skin: No symptom reported Psychiatric: No symptom reported Endocrine: No symptom reported Hemotologic/Lymphatic: Anemia H&P Exam Vital Signs Vital Signs Date Time Temp Pulse Resp B/P (MAP) Pulse Ox O2 Delivery O2 Flow Rate FiO2 05/05/24 08:11 98.9 82 14 107/64 98.9 05/05/24 08:00 96 05/04/24 22:45 Room Air* 0 21 21 General Appeara: Well developed, Well nourished, Normal Appearance Head Exam: Normal inspection Eye Exam: bilateral eye PERRL Pulmonary/Respiratory: Normal inspection Cardiovascular/Chest: Normal inspection, Tachycardia Abdominal Exam: Normal bowel sounds, No hepatospenomegaly Rectal Exam: Deferred Pelvic Exam: External exam normal, Bimanual exam normal, Active bleeding (Expressed 300 ml clots), Other (Cerix not expanded no palpable lesions, uterus small, mobile. no gross abnormalities on bimanual exam) SENIOR PRICING ANALYST Exam: Normal hearing, Normal speech Motor/Sensory: Normal sensory function Skin Exam: Pallor Labs/Xrays PATIENT: KARIME KAYCT: [id number] UNIT: [id number] : 1980 LOC: OVERFLOW ROOM / BED: [facility] / A AGE / SEX: 44 / F ADM STATUS: ADM IN SERVICE 0114 ORDERING PHYSICIAN: LUCA RODRIGUEZ RESIDENT PROCEDURE(s): PELUS - PELVIC REASON: Uterine mass ORDER NUMBER(s): [id number], ACCESSION NUMBER(s): [id number] Examination: PELUS CLINICAL INDICATION: Uterine mass. COMPARISON: None. TECHNIQUE: Transabdominal and transvaginal ultrasound was performed. FINDINGS: Uterus: The uterus measures 7.6 cm (length) x 6.4 cm (AP) x 5.4 cm (transverse). The uterus appears retroverted and heterogeneous. Endometrial thickness: 6.4 mm. Cervix: No significant abnormality noted. Ovaries: Right Ovary: Measures 4.5 x 1.6 x 1.2 cm. Contains a 2.9x 0.6 x 0.9 cm anechoic, cyst. Left Ovary: Measures 4.3x 1.0 x 2.1 cm. Contains a 0.4 x 0.4 x 0.6 cm anechoic, follicle. Adnexa: Bilateral adnexa appear within normal limits. Other Findings: No free fluid in the cul-de-sac. IMPRESSION: 1. Retroverted and retroflexed uterus. 2. No uterine mass is detected 3. Simple right ovarian cyst. Suggest follow-up ultrasound after 6 weeks. 4. No free fluid in the pelvis. Electronically Signed 05/05/2024 02:50 Jered Barcenas ATED BY: NARINDER PARRA MD DICTATED DATE/TIME: 05/05/24249 SIGNED BY: NARINDER PARRA MD SIGNED DATE/TIME: 05/05/24249 Labs Test 05/05/24 07:10 05/05/24 05:23 05/04/24 22:00 05/04/24 21:57 Range/Units Vitamin B12 Level 539 211-911 pg/mL Folic Acid 16.57 >5.38 ng/mL White Blood Count 5.4 # 4.4-10.8 10^3/uL Red Blood Count 1.84 L 4.0-5.20 10^6/uL Hemoglobin 4.4 #*L 12.2-16.2 g/dL Hematocrit 13.8 #L 36.0-46.0 % Mean Corpuscular Volume 75.1 #L 80.0-100.0 fL Mean Corpuscular Hemoglobin 24.0 L 28.0-32.0 pg Mean Corpuscular Hemoglobin Concent 31.9 L 32.0-36.0 g/dL Red Cell Distribution Width 29.0 H 11.8-14.3 % Platelet Count 19 *L 140-450 10^3/uL Mean Platelet Volume 8.1 6.9-10.8 fL Neutrophils (%) (Auto) 57.7 37.0-80.0 % Lymphocytes (%) (Auto) 35.3 10.0-50.0 % Monocytes (%) (Auto) 5.0 0.0-12.0 % Eosinophils (%) (Auto) 0.6 0.0-7.0 % Basophils (%) (Auto) 1.4 0.0-2.0 % Neutrophils # (Auto) 3.1 1.6-8.6 10 ^3/uL Lymphocytes # (Auto) 1.9 0.4-5.4 10 ^3/uL Monocytes # (Auto) 0.3 0-1.3 10 ^3/uL Eosinophils # (Auto) 0 0-0.8 10 ^3/uL Basophils # (Auto) 0.1 0-0.2 10 ^3/uL Nucleated Red Blood Cells 0.2 % Platelet Estimate Markedly decreased Hypochromasia (manual) Slight Anisocytosis (manual) Slight Tear Drop Cells Few Ovalocytes Few Stomatocytes Few Reticulocyte Count (auto) 1.38 0.5-1.5 % Prothrombin Time 10.8 9.3-11.8 sec Prothrombin Time INR 1.02 0.9-1.15 Activated Partial Thromboplast Time 23.6 L 24.5-34.5 SEC Fibrinogen 266 177-375 mg/dL Sodium Level 138 136-145 mmol/L Potassium Level 3.7 3.5-5.1 mmol/L Chloride Level 108 H 98-107 mmol/L Carbon Dioxide Level 23 20-31 mmol/L Anion Gap 7 5-15 Blood Urea Nitrogen 6 L 9-23 mg/dL Creatinine 0.44 L 0.550-1.02 mg/dL Glomerular Filtration Rate Calc 122 >90 mL/min BUN/Creatinine Ratio 13.6 10.0-20.0 Serum Glucose 97 74-106 mg/dL Calcium Level 8.3 L 8.7-10.4 mg/dL Total Bilirubin 1.1 H 0.2-1.0 mg/dL Direct Bilirubin 0.5 H <0.3 mg/dL Aspartate Amino Transferase (AST) 68 H 13-40 U/L Alanine Aminotransferase (ALT) 45 H 7-40 U/L Alkaline Phosphatase 115 46-116 U/L Lactate Dehydrogenase 213 120-246 U/L Total Protein 5.2 L 5.7-8.2 g/dL Albumin 3.3 3.2-4.8 g/dL B-Type Natriuretic Peptide 203.59 0-100 pg/mL Poikilocytosis (manual) Slight Microcytosis Marked Schistocytes Few Magnesium Level 2.1 1.6-2.6 mg/dL Iron Level 128 50-170 ug/dL Total Iron Binding Capacity 416 250-425 ug/dL Percent Iron Saturation 30.8 15-50 % Ferritin 6.3 L 10-291 ng/mL Thyroid Stimulating Hormone (TSH) 2.45 0.55-4.78 uIU/mL Assessment/Plan Admitting Diagnosis: 1. Severe Anemia and Throbocytopenia 2. Acute abnormal uterine bleeding, likely coagulopathy disorder Plan Recommend STAT Heme/Onc evaluation, needs bone marrow biospy most likely to r/o myelodysplastic disorders Replacement of all blood products is essential, PRBC, Platelets and FFP Acute uterine bleeding can be treated with regularly scheduled IV Premarin per protocol until acute bleeding stops. Can maintain afterward with oral TXA TID up to 5 days, if needed WIll need outpatient AGRICULTURAL PURCHASING AGENT follow up once stable for speculum pelvic exam, EMB, PAP test. Consider IR for [place] if acute uterine bleeding is unresponsive to medical thera py. AGRICULTURAL PURCHASING AGENT will sign off, re-consult if needed Thank you for allowing us to participate in the care of this patient. Plan discussed with: Patient, Other (Resident MD's) Date of Service: May 05, 2024 Billing Provider: RYAN CHU DO Common Visit Codes: CONSULT ONLY Consultation Codes: [id number] CONSULT <60MIN RYAN CHU DO May 05, 2024 09:30
[2024-05-05 11:05] LABS: Hepatitis B Surface Antibody Negative (Negative); Hepatitis B Surface Antigen Negative (Negative)
--- NOTE | 2024-05-05 11:29 | DVHPNRES ---
Progress Note Date Seen: May 05, 2024 Resident Creating Document: CAMILLE HUGHES RESIDENT Medical Necessity Reason Pt with a Central, PICC or Fol: No Subjective Review of Systems Ms. Escobedo is a 44-year-old female with PMHx of fibromyalgia, BCC shoulder, history of 3 vaginal deliveries-last 2009, who presented to the ER with a chief complaint of abnormal uterine bleeding for the past 1 month. She reports that her periods have been regular throughout her life, but she noticed spotting which increased to deepali bleeding and she has been passing large clots for the past 1 month. She denied any history of trauma. Associated symptoms include generalized weakness, fatigue, feeling of passing out. She had no history chest/abdominal pain/melena/hematemesis. On arrival, hemoglobin was 1.8, platelets were 32 which decreased to 19. She has received 4 packed RBCs, 1 FFP and platelets are pending. OBGYN consulted-recommended continuing with transfusion, consulting IR for possible embolization. Restaurant Crew consulted for probable ITP, started methylprednisolone. She lives with her partner and has been sexually active but monogamous only. Denies smoking or drinking. PMH: Fibromyalgia, degenerative disc disease, chronic opioid use disorder, basal cell carcinoma, restless leg syndrome PSH: Tubal ligation, Nakul en y gastric bypass 2010, breast implants (augmentation) Seen and examined at the bedside. Three packed RBC transfused, 4th packed RBC pending. 2 platelets ordered, 1 FFP ordered. Status post bone marrow biopsy. Objective vital signs Vital Sign Date Time Temp Pulse Resp B/P (MAP) Pulse Ox O2 Delivery O2 Flow Rate FiO2 05/05/24 10:50 98.8 100 22 108/61 98.8 05/05/24 08:00 96 05/04/24 22:45 Room Air* 0 21 21 Total Intake and Output 05/04/24 05/04/24 05/05/24 15:00 23:00 07:00 Intake Total 750 ml Output Total 0 ml Balance 750 ml medications Current Medications Medications Dose Ordered Sig/Donavon Route Start Time Stop Time Status Last Admin Dose Admin Sodium Chloride 10 ml Q8HR IV 05/05/24 06:00 05/05/24 06:05 10 ML Sodium Chloride 1,000 ml @ 120 mls/hr Q8H20M IV 05/05/24 00:45 05/05/24 09:31 120 MLS/HR Acetaminophen 650 mg Q6HP PRN PO 05/05/24 00:45 Nitroglycerin 0.4 mg Q5MINP PRN SL 05/05/24 00:45 Morphine Sulfate 2 mg Q30M PRN IV 05/05/24 00:45 Methylprednisolone Sodium Succinate 80 mg Q8HR IV 05/05/24 14:00 Examination Young female patient lying in bed, in no acute distress General: thin , afebrile, palor, mucosae are moist Cardiovascular: Regular S1 and S2. No murmurs, gallops or rubs. No JVD elevation. No pedal edema Respiratory: Normal B/L air entry on room air. Clear lung sounds on auscultation Abdomen: Soft, nontender, nondistended, normoactive bowel sounds, no rebound tenderness, no organomegaly, no masses Genitourinary: active bleeding and clot noticed at vaginal vault MSK/skin: Mobilizes 4 limbs. Skin is dry and warm Neurological: No motor, no sensitive deficits, normal speech. Pupils are isocoric and reactive. Psych/Mental Status: A/Ox3 laboratory and microbiology Laboratory Tests 05/05/24 05:23 Test 05/05/24 05:23 Range/Units Serum Glucose 97 74-106 mg/dL Labs and/or images reviewed: Labs reviewed by me, Image(s) reviewed by me Problem List/Assessment/Plan Problem List/Assessment/Plan Severe anemia secondary to abnormal uterine bleeding Iron-deficiency anemia Severe thrombocytopenia, likely immune thrombocytopenic purpura OBGYN consulted-WIll need outpatient PATTERN TECHNICIAN follow up once stable for speculum pelvic exam, EMB, PAP test. Acute uterine bleeding can be treated with regularly scheduled IV Premarin per protocol until acute bleeding stops. Can maintain afterward with oral TXA TID up to 5 days, if needed Consider IR for [place] if acute uterine bleeding is unresponsive to medical therapy. Restaurant Crew Dr. Gaona consulted - check MARLENE, anti-CCP antibodies, Valeria direct, HIV, hepatitis panel Treat with Solu-Medrol 80 mg IV every 8 hours IR consulted for bone marrow biopsy-patient underwent bone marrow biopsy 05/05 05/05-4 packed RBCs, 2 platelet, 1 FFP ordered, pending CBC History of gastric bypass surgery in 2010 Monitor Vitamin-D deficiency Supplemented Transaminitis secondary to steatosis Monitor LFTs Plan discussed with patient in which all questions have been answered Goals of care discussed for more than 27 minutes, full code status case discussed with Dr. Hutchison Plan discussed with: Patient My Orders My Orders Orders - CAMILLE HUGHES Procedure Category Date Status Time LIVER US 05/05/24 Resulted 06:47 Haptoglobin LAB 05/05/24 In Process 06:47 Fibrin Degredation LAB 05/05/24 In Process Products 06:48 Beta Hcg, Quantitative LAB 05/05/24 In Process 07:52 * Hematology/Oncology CONS 05/05/24 Transmitted Consult 07:53 Hepatitis C Antibody LAB 05/05/24 In Process 07:53 Ebv Vca/Ea Igg LAB 05/05/24 In Process Antibodies 07:53 Marlene Direct W/Reflex LAB 05/05/24 In Process To Comp. 08:01 CC Plasma Assessment Blood Product Administration S: [id number] CAMILLE HUGHES May 05, 2024 11:29
[2024-05-05] MEDS: fentaNYL CITRATE 100 MCG/2 ML VL ONE (11:55)
[2024-05-05] MEDS: STERILE WATER 10 ML ONE (11:56)
[2024-05-05] MEDS: LIDOCAINE 2%HCL (LOCAL ANESTH.) INJ 10ml MDV ONE (12:05)
[2024-05-05] MEDS: ESTROGENS, CONJUGATED 25 MG VIAL IV ONE (12:43)
--- NOTE | 2024-05-05 13:09 | DVH ---
CT PELVIS WO CONTRAST, HISTORY: BONE MARROW BIOPSY COMPARISON: US PELVIC on DOS: 05/05/24 PROCEDURE: Informed consent and time-out was performed before the procedure. Conscious sedation was p erformed by the interventional radiology nurse. The pelvic bone was marked, sterilized, draped, and l ocally anesthetized using approximately 8 ml of 1% lidocaine. Axial CT images were used for localizat ion. A 11 gauge Kymeta Bone Biopsy kit was used to take 12 mL aspirate and 1 core sample. The biop sy needle was then removed. No immediate complications noted. FINDINGS: Axial CT images demonstrates biopsy needle within the right posterior pelvic bone.. IMPRESSION: Successful CT-guided aspiration and biopsy of the right posterior pelvic bone.
--- NOTE | 2024-05-05 13:09 | DVH ---
CT PELVIS WO CONTRAST, HISTORY: BONE MARROW BIOPSY COMPARISON: US PELVIC on DOS: 05/05/24 PROCEDURE: Informed consent and time-out was performed before the procedure. Conscious sedation was p erformed by the interventional radiology nurse. The pelvic bone was marked, sterilized, draped, and l ocally anesthetized using approximately 8 ml of 1% lidocaine. Axial CT images were used for localizat ion. A 11 gauge APX Bone Biopsy kit was used to take 12 mL aspirate and 1 core sample. The biop sy needle was then removed. No immediate complications noted. FINDINGS: Axial CT images demonstrates biopsy needle within the right posterior pelvic bone.. IMPRESSION: Successful CT-guided aspiration and biopsy of the right posterior pelvic bone.
[2024-05-05] MEDS: ACETAMINOPHEN 325 MG TAB PO PRN (14:53)
[2024-05-05] MEDS: methylPREDNISolone SOD SUCC 125 MG/2 ML VL IV SCH (14:53)
[2024-05-05 18:06] LABS: Basophils # (auto) 0.1 10 ^3/uL (0-0.2); Eosinophils # (auto) 0 10 ^3/uL (0-0.8); Monocytes # (auto) 0.2 10 ^3/uL (0-1.3); Red Blood Cells 1.82 10^6/uL (4.0-5.20)
[2024-05-05 18:09] LABS: Basophils % (auto) 0.6 % (0.0-2.0); Eosinophils % (auto) 0.1 % (0.0-7.0); Hematocrit 14.3 % (36.0-46.0); Lymphocytes # (auto) 0.5 10 ^3/uL (0.4-5.4); Lymphocytes % (auto) 5.4 % (10.0-50.0); Mean Corpuscular Hemoglobin 26.5 pg (28.0-32.0); Mean Corpuscular Hgb Conc. 33.7 g/dL (32.0-36.0); Mean Corpuscular Volume 78.6 fL (80.0-100.0); Monocytes % (auto) 1.5 % (0.0-12.0); Neutrophils # (auto) 9.1 10 ^3/uL (1.6-8.6); Neutrophils % (auto) 92.4 % (37.0-80.0); Platelet Count (auto) 43 10^3/uL (140-450); White Blood Cell 9.9 10^3/uL (4.4-10.8)
[2024-05-05 18:18] LABS: Hemoglobin 4.8 g/dL (12.2-16.2)
--- NOTE | 2024-05-05 20:57 | DVHSR ---
APPROVED REPORT EXAM: Two-dimensional and M-mode echocardiogram with Doppler and color Doppler. Blood Pressure: 111/65 mmHg INDICATION ? output failure RISK FACTORS Height: 68, Weight: 130 DIMENSIONS LVDd5.3 (3.8-5.7cm)LA (2D)6.6 (1.9-4.0cm)Aortic Root2.8 (2.0-3.7cm) LVDs3.8 (2.5-4.0cm)LA (MM) (1.9-4.0cm)Aortic Cusp Exc1.8 (1.5-2.0cm) EF (%) 55.0 (55-70%)Rt. Atrium3.9 (1.9-4.0cm)Asc. Aorta cm IVSd1.3 (0.7-1.1cm)RV (D) (1.8-2.4cm) PWd1.3 (0.7-1.1cm) Mitral Valve MitralMitral Stenosis E wave1.24m/sMV Mean GR.4mmHg A wave1.02m/sMV Peak GR.130mmHg E/A ratio1.22D MVAcm2 DECEL [id number] 1/2 [id number] IVRTmsDop MVA5.28cm2 Aortic Valve Aortic ValveAortic Stenosis V11.26m/Nelda Mean GR.10mmHg V22.05m/Nelda Peak GR.17mmHg LVOT Diameter1.8 (1.8-2.4cm)Doppler AVA1.56cm2 Pulmonic Valve V21.46m/s Tricuspid Valve TR Velocity2.87m/s [id number] Conclusion Sinus rhythm. Notable left atrial enlargement. Mild LV enlargement. RV enlargement. Valves appear to be structurally normal. Mild thickening of the anterior mitral leaflet. The aortic valve is normal. Left ventricular function is mildly diminished. EF is approximately 40%. Underlying LV dilatation. Normal RV function. [id number] mitral insufficiency. Pgfkyjys-[id number]-pngzlu tricuspid regurgitation. No pericardial effusion masses or vegetations.
[2024-05-05] MEDS: PANTOPRAZOLE 40 MG/10 ML VIAL INJ IV ONE (23:30)
[2024-05-06] VITALS (19 sets, daily range): BP systolic 95–124; BP diastolic 45–79; PULSE 70–103; RESP 12–18; TEMP 97.8–99.2; O2SAT 95–99
[2024-05-06 03:45] LABS: Alanine Aminotransferase 34 U/L (7-40); Alkaline Phosphatase 105 U/L (46-116); Anion Gap 9 (5-15); Aspartate Aminotransferase 30 U/L (13-40); BUN/Creatinine Ratio 22.6 (10.0-20.0); Magnesium 1.7 mg/dL (1.6-2.6); Sodium 140 mmol/L (136-145)
[2024-05-06 03:52] LABS: Basophils # (auto) 0 10 ^3/uL (0-0.2); Basophils % (auto) 0.2 % (0.0-2.0); Eosinophils # (auto) 0 10 ^3/uL (0-0.8); Hemoglobin 7.2 g/dL (12.2-16.2); Lymphocytes # (auto) 0.4 10 ^3/uL (0.4-5.4); Monocytes # (auto) 0.1 10 ^3/uL (0-1.3); Nucleated Red Blood Cells % 0.1 %; White Blood Cell 7.4 10^3/uL (4.4-10.8)
[2024-05-06 03:54] LABS: Bilirubin, Total 1.4 mg/dL (0.2-1.0); Blood Urea Nitrogen 7 mg/dL (9-23); Calcium 7.5 mg/dL (8.7-10.4); Carbon Dioxide 20 mmol/L (20-31); Chloride 111 mmol/L (98-107); Glucose 145 mg/dL (74-106); Potassium 3.3 mmol/L (3.5-5.1); Total Protein 4.7 g/dL (5.7-8.2)
[2024-05-06 03:55] LABS: Hematocrit 21.7 % (36.0-46.0); Lymphocytes % (auto) 6.1 % (10.0-50.0); Mean Corpuscular Hemoglobin 27.1 pg (28.0-32.0); Mean Corpuscular Hgb Conc. 33.2 g/dL (32.0-36.0); Mean Corpuscular Volume 81.6 fL (80.0-100.0); Monocytes % (auto) 0.7 % (0.0-12.0); Neutrophils # (auto) 6.9 10 ^3/uL (1.6-8.6); Platelet Count (auto) 53 10^3/uL (140-450); Red Blood Cells 2.67 10^6/uL (4.0-5.20); Red Cell Distribution Width 18.2 % (11.8-14.3)
[2024-05-06 05:55] LABS: Platelet Estimate Decreased
[2024-05-06 08:07] LABS: Rheumatoid Arthritis Factor <10.0 IU/mL (<14.0)
[2024-05-06] MEDS ORDERED: TRAM-626 PO (08:25)
[2024-05-06] MEDS: GELATIN 1 SPONGE SIZE 50 TOP ONE (09:16)
[2024-05-06] MEDS: IODIXANOL 320MG/ML 100ML BTL IV ONE ×2 (09:16→09:42)
[2024-05-06] MEDS: fentaNYL CITRATE 100 MCG/2 ML VL ONE (09:38)
[2024-05-06] MEDS: MIDAZOLAM HCL 2MG/2ML 2ml VIAL (1mg/ml) ONE (09:39)
[2024-05-06] MEDS: LIDOCAINE 2%HCL (LOCAL ANESTH.) INJ 20ML MDV ONE (09:39)
[2024-05-06 12:07] LABS: Anti-Nuclear Antibody Direct Negative (Negative)
[2024-05-06] MEDS: HYDROmorphone HCL 2 MG/ML VL/or syr IV ONE ×2 (12:31→17:20)
--- NOTE | 2024-05-06 13:29 | DVH ---
EXAM: XY CHEST XRAY 1 VIEW Indication: upper back pain Technique: Single frontal view of the chest was obtained Comparison: XY CHEST PORTABLE on DOS: 05/04/24 FINDINGS: Lines and Tubes: None Lungs: No focal consolidation. Pleura: No effusion. No pneumothorax. Cardiomediastinal contours: Unremarkable Bones: No acute osseous abnormality. IMPRESSION: No acute cardiopulmonary disease.
--- NOTE | 2024-05-06 14:24 | DVH ---
XY ARTER/VENOUS EMBOLIZATION, HISTORY: UTERINE EMBOLIZATION PROCEDURE: Informed consent as previously obtained . The patient was placed supine on the interventio nal table. The right groin was prepped with chlorhexidine which was allowed to dry and draped in the usual sterile fashion. Time out was performed. The skin and the soft tissues were infiltrated with Xy locaine. Using micropuncture technique and real-time ultrasound guidance, the right common femoral ar ronnie was accessed and a 6 Iraqi vascular sheath placed; an image documenting patency was recorded to PACS. Over a guide wire, 5 [place] cath, and the left internal iliac artery selected. Arteriograms wer e obtained in oblique projections to reveal the left uterine arterial origin. A 2.4 Iraqi Progreat c atheter and Transcend wire were advanced into the uterine artery and AP arteriogram obtained. Gelfoam was preppared in a slurry and were carefully infused under fluoroscopic guidance until sluggish ant egrade flow. The micro catheter was removed and the [place] catheter was repositioned into the right in ternal iliac artery. Angiogram was obtained. However the catheter was unable to be advanced into the anterior division of the right internal iliac artery. Due to patient pain, the procedure was then sto pped. Catheter and sheath were then removed and hemostasis achieved with Angioseal device deployment. No immediate complication was identified. DAP 1353 FLUOROSCOPY TIME: 19.5 minutes. CONTRAST USED: 50 mL . SEDATION: Dr. Tala Kothari was personally responsible for the administration of moderate sedation during the procedure performed, including the use of an independent trained observer who had no other duties during the procedure. The drugs utilized were IV fentanyl and versed (see nursing log for details). The total time of supervision by the attending physician was approximately 90 minutes. FINDINGS: Prominent caliber bilateral uterine arteries supplying uterus were visualized. The left ut erine artery was embolized to very sluggish antegrade flow. The right uterine artery was not emboliz ed. IMPRESSION: Left uterine artery embolization to very sluggish antegrade flow. Right uterine artery was not embolized due to unable to get into the right anterior division internal iliac artery PLAN: Right leg straight for 2 hours. Pain control with dilaudid 0.5 mg PRN. Follow up CBC in AM.
[2024-05-06] MEDS: POTASSIUM EFFERVESENT TAB 25 MEQ PO ONE ×2 (14:46→14:47)
[2024-05-06] MEDS: PANTOPRAZOLE 40 MG/10 ML VIAL INJ IV SCH (14:47)
[2024-05-06] MEDS: MAGNESIUM SULFATE 1GM/100ML 100 ML IV ONE (14:47)
[2024-05-06] MEDS: ERGOCALCIFEROL 50,000 UNIT(1.25MG) CAP PO SCH (15:04)
--- NOTE | 2024-05-06 17:21 | DVHPNRES ---
Progress Note Date Seen: May 06, 2024 Resident Creating Document: CAMILLE HUGHES RESIDENT Medical Necessity Reason Pt with a Central, PICC or Fol: No Subjective Review of Systems Ms. Escobedo is a 44-year-old female with PMHx of fibromyalgia, BCC shoulder, history of 3 vaginal deliveries-last 2009, who presented to the ER with a chief complaint of abnormal uterine bleeding for the past 1 month. She reports that her periods have been regular throughout her life, but she noticed spotting which increased to deepali bleeding and she has been passing large clots for the past 1 month. She denied any history of trauma. Associated symptoms include generalized weakness, fatigue, feeling of passing out. She had no history chest/abdominal pain/melena/hematemesis. On arrival, hemoglobin was 1.8, platelets were 32 which decreased to 19. She has received 4 packed RBCs, 1 FFP and platelets are pending. OBGYN consulted-recommended continuing with transfusion, consulting IR for possible embolization. Respiratory Therapist consulted for probable ITP, started methylprednisolone. She lives with her partner and has been sexually active but monogamous only. Denies smoking or drinking. PMH: Fibromyalgia, degenerative disc disease, chronic opioid use disorder, basal cell carcinoma, restless leg syndrome PSH: Tubal ligation, Nakul en y gastric bypass 2010, breast implants (augmentation) 05/05 - Seen and examined at the bedside. Three packed RBC transfused, 4th packed RBC pending. 2 platelets ordered, 1 FFP ordered. Status post bone marrow biopsy. 05/06-patient seen and examined at the bedside. Status post embolization of the left uterine artery. Objective vital signs Vital Sign Date Time Temp Pulse Resp B/P (MAP) Pulse Ox O2 Delivery O2 Flow Rate FiO2 05/06/24 14:10 98.1 05/06/24 14:10 80 18 100/58 (72) 97 05/05/24 22:16 Room Air* 0 21 Total Intake and Output 05/05/24 05/05/24 05/06/24 15:00 23:00 07:00 Intake Total 1450 ml 850 ml 1884 ml Output Total 0 ml 0 ml Balance 1450 ml 850 ml 1884 ml medications Current Medications Medications Dose Ordered Sig/Donavon Route Start Time Stop Time Status Last Admin Dose Admin Sodium Chloride 10 ml Q8HR IV 05/05/24 06:00 05/06/24 14:47 10 ML Sodium Chloride 1,000 ml @ 120 mls/hr Q8H20M IV 05/05/24 00:45 05/06/24 14:47 120 MLS/HR Acetaminophen 650 mg Q6HP PRN PO 05/05/24 00:45 05/06/24 12:11 650 MG Nitroglycerin 0.4 mg Q5MINP PRN SL 05/05/24 00:45 Morphine Sulfate 2 mg Q30M PRN IV 05/05/24 00:45 Methylprednisolone Sodium Succinate 80 mg Q8HR IV 05/05/24 14:00 05/06/24 14:46 80 MG Pantoprazole Sodium 40 mg DAILY IV 05/06/24 10:00 05/06/24 14:47 40 MG Ergocalciferol 50,000 unit Q7D PO 05/06/24 07:30 05/06/24 15:04 50,000 UNIT Examination Young female patient lying in bed, undergoing embolectomy General: thin , afebrile, palor, mucosae are moist Cardiovascular: Regular S1 and S2. No murmurs, gallops or rubs. No JVD elevation. No pedal edema Respiratory: Normal B/L air entry on room air. Clear lung sounds on auscultation Abdomen: Soft, nontender, nondistended, normoactive bowel sounds, no rebound tenderness, no organomegaly, no masses Genitourinary: active bleeding and clot noticed at vaginal vault MSK/skin: Mobilizes 4 limbs. Skin is dry and warm Neurological: No motor, no sensitive deficits, normal speech. Pupils are isocoric and reactive. Psych/Mental Status: A/Ox3 laboratory and microbiology Laboratory Tests 05/06/24 02:54 Test 05/06/24 02:54 Range/Units Serum Glucose 145 H 74-106 mg/dL Labs and/or images reviewed: Labs reviewed by me, Image(s) reviewed by me Problem List/Assessment/Plan Problem List/Assessment/Plan Severe anemia secondary to abnormal uterine bleeding status post left uterine artery embolization Iron-deficiency anemia Severe thrombocytopenia, likely immune thrombocytopenic purpura OBGYN consulted-WIll need outpatient CANE PILER follow up once stable for speculum pelvic exam, EMB, PAP test. Acute uterine bleeding can be treated with regularly scheduled IV Premarin per protocol until acute bleeding stops. Can maintain afterward with oral TXA TID up to 5 days, if needed Respiratory Therapist Dr. Gaona consulted - check WILLIAM, anti-CCP antibodies, Valeria direct, HIV, hepatitis panel Treat with Solu-Medrol 80 mg IV every 8 hours IR consulted for bone marrow biopsy-patient underwent bone marrow biopsy 05/05 05/05-4 packed RBCs, 2 platelet, 1 FFP ordered, pending CBC 05/06 - IR completed Left uterine artery embolization. Right uterine artery was not embolized due to unable to get into the right anterior division internal iliac artery Right leg straight for 2 hours. Pain control with dilaudid 0.5 mg PRN. Follow up CBC in AM. History of gastric bypass surgery in 2010 Monitor Vitamin-D deficiency Supplemented Transaminitis secondary to steatosis Monitor LFTs Plan discussed with patient in which all questions have been answered Goals of care discussed for more than 27 minutes, full code status case discussed with Dr. Hutchison Plan discussed with: Patient My Orders My Orders Orders - CAMILLE HUGHES Procedure Category Date Status Time Ergocalciferol PHA 05/06/24 In Process (Vitamin D 50,000 07:30 Arter/Venous XY 05/06/24 Resulted Embolization 09:58 Cardiac DIET 05/06/24 Transmitted Diet-2gna,Lofat,Lochol Lunch CC Plasma Assessment Blood Product Administration S: [id number] CAMILLE HUGHES May 06, 2024 17:21
[2024-05-07 00:07] LABS: CCP IgG/IgA Antibody 7 units (0-19)
--- NOTE | 2024-05-08 16:05 | DVHDSRES ---
Discharge Summary Date of Admission Resident Creating Document: CAMILLE HUGHES RESIDENT May 05, 2024 at 00:43 Date of Discharge: Jun 03, 2024 Labs/Diagnostic Data: Laboratory Results Test 05/06/24 02:54 05/05/24 09:47 05/05/24 07:10 05/05/24 05:23 White Blood Count 7.4 10^3/uL (4.4-10.8) Red Blood Count 2.67 10^6/uL (4.0-5.20) Hemoglobin 7.2 g/dL (12.2-16.2) Hematocrit 21.7 % (36.0-46.0) Mean Corpuscular Volume 81.6 fL (80.0-100.0) Mean Corpuscular Hemoglobin 27.1 pg (28.0-32.0) Mean Corpuscular Hemoglobin Concent 33.2 g/dL (32.0-36.0) Red Cell Distribution Width 18.2 % (11.8-14.3) Platelet Count 53 10^3/uL (140-450) Mean Platelet Volume 8.6 fL (6.9-10.8) Neutrophils (%) (Auto) 93.0 % (37.0-80.0) Lymphocytes (%) (Auto) 6.1 % (10.0-50.0) Monocytes (%) (Auto) 0.7 % (0.0-12.0) Eosinophils (%) (Auto) 0.0 % (0.0-7.0) Basophils (%) (Auto) 0.2 % (0.0-2.0) Neutrophils # (Auto) 6.9 10 ^3/uL (1.6-8.6) Lymphocytes # (Auto) 0.4 10 ^3/uL (0.4-5.4) Monocytes # (Auto) 0.1 10 ^3/uL (0-1.3) Eosinophils # (Auto) 0 10 ^3/uL (0-0.8) Basophils # (Auto) 0 10 ^3/uL (0-0.2) Nucleated Red Blood Cells 0.1 % Platelet Estimate Decreased Microcytosis Slight Sodium Level 140 mmol/L (136-145) Potassium Level 3.3 mmol/L (3.5-5.1) Chloride Level 111 mmol/L (98-107) Carbon Dioxide Level 20 mmol/L (20-31) Anion Gap 9 (5-15) Blood Urea Nitrogen 7 mg/dL (9-23) Creatinine 0.31 mg/dL (0.550-1.02) Glomerular Filtration Rate Calc 133 mL/min (>90) BUN/Creatinine Ratio 22.6 (10.0-20.0) Serum Glucose 145 mg/dL (74-106) Calcium Level 7.5 mg/dL (8.7-10.4) Magnesium Level 1.7 mg/dL (1.6-2.6) Total Bilirubin 1.4 mg/dL (0.2-1.0) Aspartate Amino Transferase (AST) 30 U/L (13-40) Alanine Aminotransferase (ALT) 34 U/L (7-40) Alkaline Phosphatase 105 U/L (46-116) Total Protein 4.7 g/dL (5.7-8.2) Albumin 3.0 g/dL (3.2-4.8) Hepatitis B Core Total Antibody Negative (Negative) Rheumatoid Factor <10.0 IU/mL (<14.0) Anti-Cyclic Citrullinated Peptide 7 units (0-19) Anti-Nuclear Antibody Screen Negative (Negative) Rena-Gonzales Virus Capsid Ag IgG Ab 224.0 U/mL (0.0-17.9) Vitamin B12 Level 539 pg/mL (211-911) Vitamin D 25-Hydroxy 23.1 ng/mL (30.0-100) Folic Acid 16.57 ng/mL (>5.38) Hepatitis B Surface Antigen Negative (Negative) Hepatitis B Surface Antibody Negative (Negative) Hepatitis C Antibody Negative (Negative) HIV (1&2) Antibody Negative (Negative) Hypochromasia (manual) Slight Anisocytosis (manual) Slight Tear Drop Cells Few Ovalocytes Few Stomatocytes Few Reticulocyte Count (auto) 1.38 % (0.5-1.5) Haptoglobin 79 mg/dL (42-296) Prothrombin Time 10.8 sec (9.3-11.8) Prothrombin Time INR 1.02 (0.9-1.15) Activated Partial Thromboplast Time 23.6 SEC (24.5-34.5) Fibrinogen 266 mg/dL (177-375) Direct Bilirubin 0.5 mg/dL (<0.3) Lactate Dehydrogenase 213 U/L (120-246) Beta HCG, Quantitative 0.3 mIU/mL (1.5-4.2) Test 05/04/24 22:00 05/04/24 21:57 B-Type Natriuretic Peptide 203.59 pg/mL (0-100) Poikilocytosis (manual) Slight Schistocytes Few Iron Level 128 ug/dL (50-170) Total Iron Binding Capacity 416 ug/dL (250-425) Percent Iron Saturation 30.8 % (15-50) Ferritin 6.3 ng/mL (10-291) Thyroid Stimulating Hormone (TSH) 2.45 uIU/mL (0.55-4.78) Other Laboratory Tests 05/06/24 02:54 Brief Hx & Hospital Course: Ms. Escobedo is a 44-year-old female with PMHx of fibromyalgia, BCC shoulder, history of 3 vaginal deliveries-last 2009, who presented to the ER with a chief complaint of abnormal uterine bleeding for the past 1 month. She reports that her periods have been regular throughout her life, but she noticed spotting which increased to deepali bleeding and she has been passing large clots for the past 1 month. She denied any history of trauma. Associated symptoms include generalized weakness, fatigue, feeling of passing out. She had no history chest/abdominal pain/melena/hematemesis. On arrival, hemoglobin was 1.8, platelets were 32 which decreased to 19. She has received 4 packed RBCs, 1 FFP and platelets are pending. OBGYN consulted-recommended continuing with transfusion, consulting IR for possible embolization. Mycology Teacher consulted for probable ITP, started methylprednisolone. She lives with her partner and has been sexually active but monogamous only. Denies smoking or drinking. PMH: Fibromyalgia, degenerative disc disease, chronic opioid use disorder, basal cell carcinoma, restless leg syndrome PSH: Tubal ligation, Nakul en y gastric bypass 2010, breast implants (augmentation) During hospitalization, patient received 5 packed RBCs, 1 FFP, 2 platelets unit hemoglobin increased from 1.8-7.2. Platelets increased from 32-53. OBGYN was consulted, recommended WIll need outpatient OFFICE CLERK follow up once stable for speculum pelvic exam, EMB, PAP test. Acute uterine bleeding can be treated with regularly scheduled IV Premarin per protocol until acute bleeding stops. Can maintain afterward with oral TXA TID up to 5 days, if needed. Patient received IV Premarin 1 dose. Heme oncologist was consulted, recommended treating with Solu-Medrol 80 mg IV Q 8 hours and bone marrow biopsy with patient underwent stress 05/05 by intervention radiologist. 05/06-IR also the left uterine artery embolization. Thyroid uterine artery were embolized due to unable to get into the right anterior division internal iliac artery. 05/06-patient decided to leave against medical advice. She left during ongoing evaluation. Discharge diagnosis Severe anemia secondary to abnormal uterine bleeding status post left uterine artery embolization Iron-deficiency anemia status post bone marrow biopsy Abnormal uterine bleeding Severe thrombocytopenia, likely immune thrombocytopenic purpura History of gastric bypass surgery in 2010 Vitamin-D deficiency Transaminitis secondary to steatosis Operations or Procedures ORDERING PHYSICIAN: CAMILLE HUGHES RESIDENT PROCEDURE(s): ARTVENEMB - ARTER/VENOUS EMBOLIZATION REASON: UTERINE EMBOLIZATION ORDER NUMBER(s): [id number], ACCESSION NUMBER(s): [id number] XY ARTER/VENOUS EMBOLIZATION, HISTORY: UTERINE EMBOLIZATION PROCEDURE: Informed consent as previously obtained . The patient was placed supine on the interventional table. The right groin was prepped with chlorhexidine which was allowed to dry and draped in the usual sterile fashion. Time out was performed. The skin and the soft tissues were infiltrated with Xylocaine. Using micropuncture technique and real-time ultrasound guidance, the right common femoral artery was accessed and a 6 [place] vascular sheath placed; an image documenting patency was recorded to PACS. Over a guide wire, 5 [place] cath, and the left internal iliac artery selected. Arteriograms were obtained in oblique projections to reveal the left uterine arterial origin. A 2.4 [place] Progreat catheter and Transcend wire were advanced into the uterine artery and AP arteriogram obtained. Gelfoam was preppared in a slurry and were carefully infused under fluoroscopic guidance until sluggish antegrade flow. The micro catheter was removed and the [place] catheter was repositioned into the right internal iliac artery. Angiogram was obtained. However the catheter was unable to be advanced into the anterior division of the right internal iliac artery. Due to patient pain, the procedure was then stopped. Catheter and sheath were then removed and hemostasis achieved with Angioseal device deployment. No immediate complication was identified. DAP 1353 FLUOROSCOPY TIME: 19.5 minutes. CONTRAST USED: 50 mL . SEDATION: Dr. Tala Kothari was personally responsible for the administration of moderate sedation during the procedure performed, including the use of an independent trained observer who had no other duties during the procedure. The drugs utilized were IV fentanyl and versed (see nursing log for details). The total time of supervision by the attending physician was approximately 90 minutes. FINDINGS: Prominent caliber bilateral uterine arteries supplying uterus were visualized. The left uterine artery was embolized to very sluggish antegrade flow. The right uterine artery was not embolized. IMPRESSION: Left uterine artery embolization to very sluggish antegrade flow. Right uterine artery was not embolized due to unable to get into the right anterior division internal iliac artery PLAN: Right leg straight for 2 hours. Pain control with dilaudid 0.5 mg PRN. Follow up CBC in AM. ATED BY: TIEN KOTHARI MD DICTATED DATE/TIME: 05/06/241421 SIGNED BY: TIEN KOTHARI MD SIGNED DATE/TIME: 05/06/24 142 CC: ORDERING PHYSICIAN: TIEN KOTHARI MD PROCEDURE(s): NGB - CT GUIDED NEEDLEBIOPSY REASON: BONE MARROW BIOPSY ORDER NUMBER(s): [id number], ACCESSION NUMBER(s): [id number] CT PELVIS WO CONTRAST, HISTORY: BONE MARROW BIOPSY COMPARISON: US PELVIC on DOS: 05/05/24 PROCEDURE: Informed consent and time-out was performed before the procedure. Conscious sedation was performed by the interventional radiology nurse. The pelvic bone was marked, sterilized, draped, and locally anesthetized using approximately 8 ml of 1% lidocaine. Axial CT images were used for localization. A 11 gauge Sapho Bone Biopsy kit was used to take 12 mL aspirate and 1 core sample. The biopsy needle was then removed. No immediate complications noted. FINDINGS: Axial CT images demonstrates biopsy needle within the right posterior pelvic bone.. IMPRESSION: Successful CT-guided aspiration and biopsy of the right posterior pelvic bone. ATED BY: TIEN KOTHARI MD DICTATED DATE/TIME: 05/05/24 1307 SIGNED BY: TIEN KOTHARI MD SIGNED DATE/TIME: 05/05/24 130 CC: Condition at Discharge: Undetermined Final Diagnosis/Problems List Severe anemia secondary to abnormal uterine bleeding status post left uterine artery embolization Iron-deficiency anemia status post bone marrow biopsy Abnormal uterine bleeding Severe thrombocytopenia, likely immune thrombocytopenic purpura History of gastric bypass surgery in 2010 Vitamin-D deficiency Transaminitis secondary to steatosis Discharge Disposition: AMA Discharge Statement: "Patient was advised to return to the ER or call 911 if any headaches, dizziness, shortness of breath, chest pain, abdominal pain, bleeding, fevers, or worsening of medical condition. Patient was counseled about treatment plan, medications, possible side effects, patientverbalized understanding. All questions were answered to the best of my ability. This discharge took greater then 30 minutes in planning, reviewing documentation, counseling the patient, and discussing with other team members." ASSESSMENT ASSESSMENT Assessment CAMILLE HUGHES RESIDENT May 08, 2024 16:05
[2024-05-09 05:06] LABS: Albumin 2.4 g/dL (2.9-4.4); Alpha-1-Globulin 0.3 g/dL (0.0-0.4); Alpha-2-Globulin 0.6 g/dL (0.4-1.0); Gamma Globulin 0.9 g/dL (0.4-1.8); Globulin Total 2.6 g/dL (2.2-3.9)
== END 2024-05-06 20:49 | disposition left against medical advice (07) | DRG 950 ==
LOC: EDBD 21:39 → ER 21:39 → OVERFLOW 05-05 00:43 → TELE-CENTR 05-05 21:45
PROVIDERS: ADMIT Student in an Organized Health Care Education/Training Program; ATTEND Emergency Medicine
PROC: 0QB23ZX Excision of Right Pelvic Bone, Percutaneous Approach, Diagnostic (ICD-10-PCS; 2024-05-05)
PROC: 0Q923ZX Drainage of Right Pelvic Bone, Percutaneous Approach, Diagnostic (ICD-10-PCS; 2024-05-05)
PROC: 30233K1 Transfusion of Nonautologous Frozen Plasma into Peripheral Vein, Percutaneous Approach (ICD-10-PCS; 2024-05-05)
PROC: 30233N1 Transfusion of Nonautologous Red Blood Cells into Peripheral Vein, Percutaneous Approach (ICD-10-PCS; 2024-05-05)
PROC: 30233R1 Transfusion of Nonautologous Platelets into Peripheral Vein, Percutaneous Approach (ICD-10-PCS; 2024-05-05)
PROC: 04LF3DZ Occlusion of Left Internal Iliac Artery with Intraluminal Device, Percutaneous Approach (ICD-10-PCS; principal; 2024-05-06)
DX: N92.0 Excessive and frequent menstruation with regular cycle (principal); D61.818 Other pancytopenia; K76.0 Fatty (change of) liver, not elsewhere classified; D50.9 Iron deficiency anemia, unspecified; E55.9 Vitamin D deficiency, unspecified; G25.81 Restless legs syndrome; N83.291 Other ovarian cyst, right side; R74.01 Elevation of levels of liver transaminase levels; M79.7 Fibromyalgia; Z85.828 Personal history of other malignant neoplasm of skin; Z98.82 Breast implant status; Z80.8 Family history of malignant neoplasm of other organs or systems; Z79.1 Long term (current) use of non-steroidal anti-inflammatories (NSAID); Z79.899 Other long term (current) drug therapy; Z98.84 Bariatric surgery status; Z79.891 Long term (current) use of opiate analgesic; Z87.891 Personal history of nicotine dependence
CPT/HCPCS: 10005; 36415; 36430; 37243; 71045; 72192; 76705; 76830; 76856; 77012; 80053; 82248; 82306; 82607; 82728; 82746; 83010; 83540; 83550; 83615; 83735; 83880; 84155; 84165; 84443; 84702; 85025; 85045; 85060; 85362; 85384; 85610; 85730; 86038; 86200; 86431; 86664; 86703; 86706; 86803; 86850; 86880; 86900; 86901; 86920; 87340; 93005; 93306; 96360; 99152; 99291; C1894; G0378; J2003; J2250; J2470; Q9967

== ENCOUNTER 2024-08-09 03:07 | Emergency (ER) | payer MEDICAID ==
[~2024-08-09] VITALS: Ht 162.6 cm; Wt 56.0 kg
[~2024-08-09 03:07] MED LIST: TRAM-626 PO
[2024-08-09 03:48] VITALS: BP 95/44; PULSE 82; RESP 16; TEMP 97.7; O2SAT 100
[2024-08-09] MEDS: LIDOCAINE 1% HCL (LOCAL ANESTH.) INJ 20ML MDV ID ONE (04:12)
[2024-08-09] MEDS ORDERED: ACET500T58 PO (04:16)
[2024-08-09] MEDS ORDERED: CLIN1CAP70 PO (04:16)
--- NOTE | 2024-08-09 04:18 | ED.PDOC ---
HPI Comments 44-YEAR-OLD FEMALE PRESENTS TO ER WITH COMPLAINTS OF LACERATION TO RIGHT FOOT X1 DAY. PATIENT REPORTS THAT SHE SUSTAINED A LACERATION TO RIGHT FOOT AT 1:30 A.M. PRIOR TO ARRIVAL TO ER S/P TRIPPING OVER A "LAWN LIGHT" OUTSIDE HER HOME WITH HER RIGHT FOOT. DENIES HEAD INJURY/LOC AND RATES HER CURRENT PAIN A 6/10 TO RIGHT FOOT WITHOUT RADIATION. DENIES USE OF MEDICATIONS FOR CURRENT SYMPTOMS AND STATES SHE HAS NOT BEEN ABLE TO BEAR WEIGHT ON RIGHT LEG DUE TO PAIN LOCALIZED TO RIGHT FOOT. DENIES NUMBNESS/TINGLING, RIGHT ANKLE PAIN OR ANY FURTHER SYMPTOMS/COMPLAINTS Chief Complaint: Laceration Time Seen by MD: 03:12 Primary Care Provider: UNKNOWN Reviewed Notes: Nurses Notes, Medications, Allergies Allergies: Coded Allergies: NO KNOWN ALLERGIES (Unverified , 05/04/24) Home Meds Active Scripts Acetaminophen (Acetaminophen) 500 Mg Tab, 500 MG PO Q4HPRN, #30 TAB 0 Refills Prov:MAURISIO NAVARRO 08/09/24 Clindamycin Hcl (Clindamycin Hcl) 300 Mg Cap, 1 CAP PO TID for 7 Days, #21 CAP 0 Refills Prov:MAURISIO NAVARRO 08/09/24 Reported Medications Tramadol HCl (Tramadol HCl) 50 Mg Tab, 50 MG PO Q6HP PRN for FOR PAIN, TAB 05/06/24 Information Source: Patient Mode of Arrival: Ambulatory Complexity: Simple Laceration Length (cm): 3 Skin Type: Linear Past Medical History PAST MEDICAL HISTORY: Anemia Surgical History: Denies all surgeries CONDOMINIUM PROPERTY MANAGER History: No Pertinent CONDOMINIUM PROPERTY MANAGER History Family History Family History: Unknown Social History Smoker: Non-Smoker Alcohol: Denies ETOH Use Drugs: Denies Drug Use Lives In: Home Constitutional: denies: chills, diaphoresis, fatigue, fever, malaise, sweats, weakness, others EENTM: denies: blurred vision, double vision, ear bleeding, ear discharge, ear drainage, ear pain, ear ringing, eye pain, eye redness, hearing loss, mouth pain, mouth swelling, nasal discharge, nose bleeding, nose congestion, nose pain, photophobia, tearing, throat pain, throat swelling, voice changes, others Respiratory: denies: cough, hemoptysis, orthopnea, SOB at rest, shortness of breath, SOB with excertion, stridor, wheezing, others Cardiovascular: denies: chest pain, dizzy spells, diaphoresis, Dyspnea on exertion, edema, irregular heart beat, left arm pain, lightheadedness, palpitations, PND, syncope, others Gastrointestinal: denies: abdomen distended, abdominal pain, blood streaked bowels, constipated, diarrhea, dysphagia, difficulty swallowing, hematemesis, melena, nausea, poor appetite, poor fluid intake, rectal bleeding, rectal pain, vomiting, others Genitourinary: denies: abnormal vagina bleeding, burning, dyspareunia, dysuria, flank pain, frequency, hematuria, incontinence, pain, , vagina discharge, urgency, others Neurological: denies: dizziness, fainting, headache, left sided numbness, left sided weakness, numbness, paresthesia, pre-existing deficit, right sided numbness, right sided weakness, seizure, speech problems, tingling, tremors, weakness, others Musculoskeletal: denies: back pain, gout, joint pain, joint swelling, muscle pain, muscle stiffness, neck pain, others Integumetry: reports: others (As stated in HPI) Allergic/Immunocompromised: denies: Difficulty Healing, Frequent Infections, Hives, Itching, others Hematologic/Lymphatic: denies: anemia, blood clots, easy bleeding, easy bruising, swollen glands, others Endocrine: denies: excessive hunger, excessive sweating, excessive thirst, excessive urination, flushing, intolerance to cold, intolerance to heat, unexplained weight gain, unexplained weight loss, others Psychiatric: denies: anxiety, bipolar disorder, depression, hopeless, panic disorder, schizophrenia, sleepless, suicidal, others Physical Exam General Appearance: No Apparent Distress HEENT: PERRL/EOMI Neck: Full Range of Motion, Non-Tender, Normal Respiratory: Chest Non-Tender, Lungs Clear, No Accessory Muscle Use, No Respiratory Distress, Normal Breath Sounds Cardiovascular: No Murmur, No Gallop, Regular Rate/Rhythm Breast Exam: Deferred Gastrointestinal: NOT DONE Genitalia: Deferred Pelvic: Deferred Rectal: Deferred Extremities: Normal capillary refill, Normal range of motion Neurologic: Alert, No Motor Deficits, Normal Affect, Normal Mood, No Sensory Deficits Cerebellar Function: Normal Reflexes: Normal Skin: Dry, Warm Peripheral Pulses: 2+ dorsalis pedis (R), 2+ dorsalis pedis (L), 2+ Radial (R), 2+ Radial (L), 2+ Brachial (R), 2+ Brachial (L) Lymphatic: No Adenopathy Was a procedure done? Was a procedure done?: Yes Sedation Sedation?: No Laceration Repair : Location Right foot Length 3 cm Anesthetic: Lidocaine (1%), Without epi Laceration Repair Prep: Saline (and peroxide), by Irrigation (heavily irrigated without any signs of foreign body) Laceration Repair: Number of sutures (3 placed ), Size (4-0), Nylon, Simple, Non-adherent gauze Informed consent obtained: Yes Risks, benefits, and alternati: Yes Images 1 - 3 cm laceration noted. Slight TTP/swelling/erythema localized to wound edges. No foreign body/further skin changes noted. Patient able to move all toes of right foot and able to bear minimal weight on right leg due to pain localized to laceration of right foot. Pulses intact. Differential diagnosis Generic Laceration: Fracture, Retained Foriegn Body, Neurovascular Injury X-Ray, Labs, Meds, VS Vital Signs Date Time Temp Pulse Resp B/P (MAP) Pulse Ox O2 Delivery O2 Flow Rate FiO2 08/09/24 03:48 97.7 82 16 95/44 (61) 100 97.7 08/09/24 03:48 100 Room Air* 0 21 08/09/24 03:20 97.7 82 16 95/44 (61) 100 97.7 Current Medications Medications (Trade) Dose Ordered Sig/Donavon Route Start Time Stop Time Status Last Admin Lidocaine HCl (Xylocaine 1%) ONCE ONCE ID 08/09/24 04:15 08/09/24 04:16 DC 08/09/24 04:12 PATIENT: KARIME KAYCT: [id number]: [id number] : 1980 LOC: ER ROOM / BED: / AGE / SEX: 44 / F ADM STATUS: REG ER SERVICE [id number] ORDERING PHYSICIAN: MAURISIO NAVARRO PROCEDURE(s): RFOOT - R FOOT 3 VIEW XRAY REASON: RIGHT FOOT PAIN/LACERATION ORDER NUMBER(s): [id number], ACCESSION NUMBER(s): [id number] CLINICAL INDICATION: RIGHT FOOT PAIN/LACERATION TECHNIQUE: XY R FOOT 3 VIEW XRAY Comparison: None FINDINGS/IMPRESSION: : There is no evidence of acute fracture or dislocation. Soft tissues are unremarkable. No appreciable radiopaque foreign body. ATED BY: DAVID BATISTA MD DICTATED DATE/TIME: 08/09/24429 SIGNED BY: DAVID BATISTA MD SIGNED DATE/TIME: 08/09/24429 CC: Right foot x-ray reviewed Wound cleaning performed at bedside Wound care/cleaning discussed and advised Crutches ordered, patient educated on proper use. Was advised on use at all times Advised to follow up in two days for wound check Advised to follow up in 10-14 days for removal of sutures Advised to follow up with PCP in 1-2 days Patient verbalized understanding and agreeable with current plan of care Advised to return to ER immediately if symptoms worsen Images Reviewed?: Images reviewed and evaluated by me Time of 1ST Reevaluation: 04:02 Reevaluation 1ST: N/A Patient Education/Counseling: Diagnosis, Treatment, Prognosis, Need For Follow Up Family Education/Counseling: No Family Present Departure 1 Departure Time of Disposition: 04:34 Impression: Primary Impression: Laceration of foot, right Qualified Codes: S91.311A - Laceration without foreign body, right foot, initial encounter Disposition: HOME / SELF CARE / HOMELESS Condition: Stable e-Prescriptions Acetaminophen (Acetaminophen) 500 Mg Tab 500 MG PO Q4HPRN, #30 TAB 0 Refills Prov: MAURISIO NAVARRO 08/09/24 Clindamycin Hcl (Clindamycin Hcl) 300 Mg Cap 1 CAP PO TID for 7 Days, #21 CAP 0 Refills Prov: MAURISIO NAVARRO 08/09/24 Discharged With: Friend Critical Care Note Critical Care Time?: No Stability Stability form required: No Heart Score Heart Score: Heart Score Response (Comments) Value History N/A 0 EKG N/A 0 Age N/A 0 Risk Factors N/A 0 Troponin N/A 0 Total 0 MAURISIO NAVARRO Aug 09, 2024 04:18
--- NOTE | 2024-08-09 04:33 | DVH ---
CLINICAL INDICATION: RIGHT FOOT PAIN/LACERATION TECHNIQUE: XY R FOOT 3 VIEW XRAY Comparison: None FINDINGS/IMPRESSION: : There is no evidence of acute fracture or dislocation. Soft tissues are unremarkable. No appreciable radiopaque foreign body.
== END 2024-08-09 04:47 | disposition home or self-care (01) ==
LOC: ER 03:13
DX: S91.311A Laceration without foreign body, right foot, initial encounter (principal); D64.9 Anemia, unspecified; Z79.899 Other long term (current) drug therapy; W01.0XXA Fall on same level from slipping, tripping and stumbling without subsequent striking against object, initial encounter; Y93.89 Activity, other specified; Y92.89 Other specified places as the place of occurrence of the external cause; Y99.8 Other external cause status
CPT/HCPCS: 12002; 73630; 99283; J2003

== ENCOUNTER 2024-11-27 22:12 | Emergency (ER) | payer MEDICAID ==
[~2024-11-27] VITALS: Ht 167.6 cm; Wt 68.0 kg
[~2024-11-27 22:12] MED LIST changes: +ACET500T58 PO; +CLIN1CAP70 PO
[2024-11-27 23:20] LABS: Hematocrit 18.8 % (36.0-46.0); Mean Corpuscular Hemoglobin 19.4 pg (28.0-32.0); Mean Corpuscular Volume 67.8 fL (80.0-100.0); Nucleated Red Blood Cells % 0.1 %
[2024-11-27 23:21] LABS: Potassium 4.2 mmol/L (3.5-5.1); Sodium 140 mmol/L (136-145)
[2024-11-27 23:22] LABS: Anion Gap 8 (5-15); Carbon Dioxide 23 mmol/L (20-31)
[2024-11-27 23:23] LABS: Calcium 8.4 mg/dL (8.7-10.4); Chloride 109 mmol/L (98-107)
[2024-11-27 23:27] LABS: BUN/Creatinine Ratio 11.8 (10.0-20.0); Glucose 86 mg/dL (74-106)
[2024-11-27 23:30] LABS: Hemoglobin 5.4 g/dL (12.2-16.2)
[2024-11-27 23:31] LABS: Blood Urea Nitrogen 8 mg/dL (9-23)
[2024-11-28 00:07] LABS: Anisocytosis Moderate
[2024-11-28 00:10] LABS: Stomatocytes Few; Tear Drop Cells FEW
== END 2024-11-28 04:16 | disposition left against medical advice (07) ==
LOC: ER 22:12 → EDBD 22:12 → ER 11-28 04:16
DX: R53.1 Weakness (principal); Z53.21 Procedure and treatment not carried out due to patient leaving prior to being seen by health care provider
CPT/HCPCS: 36415; 80048; 85025

== ENCOUNTER 2024-12-23 23:32 | Emergency (ER) | payer MEDICAID ==
[~2024-12-23] VITALS: Ht 162.6 cm; Wt 51.3 kg
--- NOTE | 2024-12-23 23:58 | ED.PDOC ---
History of Present Illness HPI Comments 44-year-old female with past medical history of anemia presenting for evaluation of fatigue, generalized weakness, lightheadedness, concerns for worsening anemia over the past couple of months. Denies chest pain or shortness of breath with this. Patient states that she has previously required a blood transfusion, last blood transfusion was in April of this year. Was seen in this emergency department 1 month ago and was told that her hemoglobin was critical, however, left without a blood transfusion. Is supposed to take iron supplementation, however, not currently taking it. Has previously met with her primary care doctor with plans for possible outpatient IV iron infusion. Anemia thought to be due to heavy menstrual cycles. Not currently menstruating. Patient reports feeling fatigued and looking pale, states this is typical of when she needs a blood transfusion. Chief Complaint: Dizziness Time Seen by MD: 23:38 Primary Care Provider: UNKNOWN Reviewed Notes: Nurses Notes Allergies: Coded Allergies: Acetaminophen (Verified Allergy, Unknown, 12/23/24) Hydrocodone (Verified Allergy, Unknown, 12/23/24) Home Meds Active Scripts Acetaminophen (Acetaminophen) 500 Mg Tab, 500 MG PO Q4HPRN, #30 TAB 0 Refills Prov:MAURISIO NAVARRO 08/09/24 Clindamycin Hcl (Clindamycin Hcl) 300 Mg Cap, 1 CAP PO TID for 7 Days, #21 CAP 0 Refills Prov:MAURISIO NAVRARO 08/09/24 Reported Medications Tramadol HCl (Tramadol HCl) 50 Mg Tab, 50 MG PO Q6HP PRN for FOR PAIN, TAB 05/06/24 Information Source: Patient, Significant Other Mode of Arrival: Ambulatory Past Medical History PAST MEDICAL HISTORY: Anemia Surgical History: Denies all surgeries RN COMMUNITY History: No Pertinent RN COMMUNITY History Family History Family History: Unknown Social History Smoker: Non-Smoker Alcohol: Denies ETOH Use Drugs: Denies Drug Use Lives In: Home Constitutional: reports: fatigue, weakness EENTM: denies: blurred vision, double vision, ear bleeding, ear discharge, ear drainage, ear pain, ear ringing, eye pain, eye redness, hearing loss, mouth pain, mouth swelling, nasal discharge, nose bleeding, nose congestion, nose pain, photophobia, tearing, throat pain, throat swelling, voice changes, others Respiratory: denies: cough, hemoptysis, orthopnea, SOB at rest, shortness of breath, SOB with excertion, stridor, wheezing, others Cardiovascular: reports: dizzy spells Gastrointestinal: reports: nausea Genitourinary: denies: abnormal vagina bleeding, burning, dyspareunia, dysuria, flank pain, frequency, hematuria, incontinence, pain, , vagina discharge, urgency, others Neurological: denies: dizziness, fainting, headache, left sided numbness, left sided weakness, numbness, paresthesia, pre-existing deficit, right sided numbness, right sided weakness, seizure, speech problems, tingling, tremors, weakness, others Musculoskeletal: denies: back pain, gout, joint pain, joint swelling, muscle pain, muscle stiffness, neck pain, others Integumetry: denies: bruises, change in color, change in hair/nails, dryness, laceration, lesions, lumps, rash, wounds, others Allergic/Immunocompromised: denies: Difficulty Healing, Frequent Infections, Hives, Itching, others Hematologic/Lymphatic: denies: anemia, blood clots, easy bleeding, easy bruising, swollen glands, others Endocrine: denies: excessive hunger, excessive sweating, excessive thirst, excessive urination, flushing, intolerance to cold, intolerance to heat, unexplained weight gain, unexplained weight loss, others Psychiatric: denies: anxiety, bipolar disorder, depression, hopeless, panic disorder, schizophrenia, sleepless, suicidal, others Physical Exam General Appearance: None HEENT: Pale [place] (L), Pale [place]ae (R) Neck: None Respiratory: No Accessory Muscle Use Cardiovascular: None Breast Exam: Deferred Gastrointestinal: Non Tender, Soft Genitalia: Deferred Pelvic: Deferred Rectal: Deferred Extremities: Normal capillary refill Neurologic: Alert, grain sampler II-XII nml as Tested Cerebellar Function: NOT DONE Reflexes: NOT DONE Skin: Pallor Lymphatic: No Adenopathy Was a procedure done? Was a procedure done?: No Differential Dx Considerations may include: Symptomatic anemia versus viral illness versus electrolyte abnormalities X-Ray, Labs, Meds, VS Vital Signs Date Time Temp Pulse Resp B/P (MAP) Pulse Ox O2 Delivery O2 Flow Rate FiO2 12/23/24 23:33 98.2 84 16 119/52 100 98.2 Lab Test 12/23/24 23:59 Range/Units White Blood Count 4.3 L 4.4-10.8 10^3/uL Red Blood Count 3.12 L 4.0-5.20 10^6/uL Hemoglobin 5.9 *L 12.2-16.2 g/dL Hematocrit 20.9 L 36.0-46.0 % Mean Corpuscular Volume 67.0 L 80.0-100.0 fL Mean Corpuscular Hemoglobin 18.8 L 28.0-32.0 pg Mean Corpuscular Hemoglobin Concent 28.1 L 32.0-36.0 g/dL Red Cell Distribution Width 35.6 H 11.8-14.3 % Platelet Count 80 L 140-450 10^3/uL Mean Platelet Volume 8.4 6.9-10.8 fL Neutrophils (%) (Auto) 38.5 37.0-80.0 % Lymphocytes (%) (Auto) 51.8 H 10.0-50.0 % Monocytes (%) (Auto) 5.2 0.0-12.0 % Eosinophils (%) (Auto) 2.7 0.0-7.0 % Basophils (%) (Auto) 1.8 0.0-2.0 % Neutrophils # (Auto) 1.7 1.6-8.6 10 ^3/uL Lymphocytes # (Auto) 2.2 0.4-5.4 10 ^3/uL Monocytes # (Auto) 0.2 0-1.3 10 ^3/uL Eosinophils # (Auto) 0.1 0-0.8 10 ^3/uL Basophils # (Auto) 0.1 0-0.2 10 ^3/uL Nucleated Red Blood Cells 0.1 % Platelet Estimate Pending Sodium Level 145 136-145 mmol/L Potassium Level 3.5 3.5-5.1 mmol/L Chloride Level 110 H 98-107 mmol/L Carbon Dioxide Level 25 20-31 mmol/L Anion Gap 10 5-15 Blood Urea Nitrogen 7 L 9-23 mg/dL Creatinine 0.49 L 0.550-1.02 mg/dL Glomerular Filtration Rate Calc 119 >90 mL/min BUN/Creatinine Ratio 14.3 10.0-20.0 Serum Glucose 93 74-106 mg/dL Calcium Level 9.2 8.7-10.4 mg/dL Time of 1ST Reevaluation: 01:08 (Look for the patient numerous times in the emergency department to inform her of anemia and blood transfusion. However, it appears that the patient eloped prior to completion of workup.) Reevaluation 1ST: N/A Patient Education/Counseling: Diagnosis, Treatment, Need For Follow Up Family Education/Counseling: Diagnosis, Treatment, Need For Follow Up SEPSIS Sepsis Screen Date sepsis recognized/suspect: Dec 23, 2024 Time Sepsis recognized/suspect: 2335 Recent Procedure: No On Antibiotic Therapy: No Respiratory Rate >20: No Heart Rate >90: No Temp<36 C (96.8 F) or >38.3 C: No SBP <90 or MAP <65 mmHG: No New Acute Mental Status Change: No Is the patient on CPAP, BIPAP,: No Physician Orders Complete Blood Count (12/23/24 23:46) Type And Screen (12/23/24 23:46) Test, Urine (12/23/24 23:48) Rbc Morphology (12/23/24 23:59) Obtain Consent For: (12/24/24 00:40) Packedcell-Noactive Bleeding (12/24/24 00:40) Vital Signs .PER UNIT PROTOCOL (12/24/24 00:40) Administer Blood Products UD (12/24/24 00:40) Vital Signs Date Time Temp Pulse Resp B/P (MAP) Pulse Ox O2 Delivery O2 Flow Rate FiO2 12/23/24 23:33 98.2 84 16 119/52 100 98.2 Laboratory Tests Test 12/23/24 23:59 White Blood Count 4.3 10^3/uL (4.4-10.8) L Departure 1 Departure Time of Disposition: 23:57 (44-year-old female with past medical history of transfusion-dependent anemia presenting for symptoms of worsening lightheadedness, fatigue, weakness, patient reporting symptoms similar to prior anemia. Patient does appear pale, has conjunctiva pallor as well, CBC was obtained today which shows a hemoglobin of 5.9, within transfusion range. Patient also with thrombocytopenia in 80s, however, not within transfusion range. I ordered a unit of PRBCs for blood transfusion. However, it appears that the patient eloped prior to reassessment and prior to blood transfusion. ) Impression: Primary Impression: Symptomatic anemia Disposition: 07 LEFT AWOL/ELOPED Condition: Stable Discharged With: Self Critical Care Note Critical Care Time?: No Stability Stability form required: No RAMIREZ,KONG D MD Dec 23, 2024 23:58
[2024-12-24 00:26] LABS: Hematocrit 20.9 % (36.0-46.0)
[2024-12-24 00:28] LABS: Mean Corpuscular Hemoglobin 18.8 pg (28.0-32.0); Mean Corpuscular Volume 67.0 fL (80.0-100.0); Nucleated Red Blood Cells % 0.1 %
[2024-12-24 00:37] LABS: Hemoglobin 5.9 g/dL (12.2-16.2)
[2024-12-24 00:44] LABS: Sodium 145 mmol/L (136-145)
[2024-12-24 00:45] LABS: Anion Gap 10 (5-15); Calcium 9.2 mg/dL (8.7-10.4); Carbon Dioxide 25 mmol/L (20-31)
[2024-12-24 00:49] LABS: Chloride 110 mmol/L (98-107); Potassium 3.5 mmol/L (3.5-5.1)
[2024-12-24 00:50] LABS: BUN/Creatinine Ratio 14.3 (10.0-20.0); Blood Urea Nitrogen 7 mg/dL (9-23); Glucose 93 mg/dL (74-106)
[2024-12-24 03:18] VITALS: BP 105/55; PULSE 99; RESP 16; TEMP 97.6; O2SAT 100
[2024-12-24 04:03] LABS: Alanine Aminotransferase 20 U/L (7-40); Alkaline Phosphatase 80 U/L (46-116); Calcium 8.8 mg/dL (8.7-10.4); Carbon Dioxide 26 mmol/L (20-31)
[2024-12-24 04:04] LABS: Albumin 4.0 g/dL (3.2-4.8); Anion Gap 7 (5-15); BUN/Creatinine Ratio 12.8 (10.0-20.0); Bilirubin, Total 1.0 mg/dL (0.2-1.0); Blood Urea Nitrogen 6 mg/dL (9-23); Chloride 110 mmol/L (98-107); Glucose 96 mg/dL (74-106); Potassium 3.8 mmol/L (3.5-5.1); Sodium 143 mmol/L (136-145); Total Protein 6.8 g/dL (5.7-8.2)
[2024-12-24] MEDS ORDERED: ONDANSETRON HCL 4 MG/2 ML VIAL IV PRN (04:30)
[2024-12-24] MEDS ORDERED: DOCUSATE SOD 100 MG CAP PO PRN (04:30)
[2024-12-24 06:43] LABS: Stomatocytes Few; Tear Drop Cells FEW
[2024-12-24 06:44] LABS: Anisocytosis Marked
== END 2024-12-24 05:48 | disposition left against medical advice (07) ==
LOC: ER 23:32
DX: D64.9 Anemia, unspecified (principal); Z88.5 Allergy status to narcotic agent; Z79.899 Other long term (current) drug therapy
CPT/HCPCS: 36415; 80048; 80053; 85025; 86850; 86900; 86901; 86920